=== PATIENT | female | born 1985 | race Caucasian/White ===

== ENCOUNTER → 2017-03-01 | Outpatient (CLI) | payer OTHER | END | disposition home or self-care (01) | LOC: LABWHC1 13:19 | PROVIDERS: ATTEND Nurse Practitioner Family | DX: N91.2 Amenorrhea, unspecified (principal) | CPT/HCPCS: 36415; 84702 ==

== ENCOUNTER → 2018-05-02 | Outpatient (CLI) | payer OTHER | END | disposition home or self-care (01) | LOC: LABWHC1 11:05 | PROVIDERS: ATTEND Physician Assistant | DX: Z33.1 Pregnant state, incidental (principal) | CPT/HCPCS: 36415; 84702 ==

== ENCOUNTER → 2018-07-28 | Outpatient (CLI) | payer OTHER ==
[2018-07-28 10:49] LABS: HCT 34.5 % (34.0-46.0); HGB 11.8 gm/dL (11.4-16.0); MCHC 34.1 g/dL (31.0-37.0); MCV 87.9 fL (80.0-100.0); Mean Platelet Volume 8.2; Platelet Count 172 k/uL (150-450); RBC 3.93 m/uL (3.80-5.40); RDW 13.5 % (11.5-15.5); WBC 6.8 k/uL (3.8-10.6)
[2018-07-28 18:28] LABS: HIV 1 AB Non-Reactive (Non-Reactive); HIV AB P24 Non-Reactive (Non-Reactive); HIV P24 AG Non-Reactive (Non-Reactive)
[2018-07-29 03:56] LABS: Toxoplasma Antibody (IgG) <3.0 IU/mL (<7.2); Toxoplasma Antibody (IgM) <3.0 AU/mL (<8.0)
== END | disposition home or self-care (01) ==
LOC: LABWHC1 09:15
PROVIDERS: ATTEND Obstetrics & Gynecology
DX: O26.812 Pregnancy related exhaustion and fatigue, second trimester (principal); Z3A.00 Weeks of gestation of pregnancy not specified
CPT/HCPCS: 36415; 82565; 82950; 85027; 86762; 86777; 86778; 86780; 86850; 86900; 86901; 87340; 87390

== ENCOUNTER 2018-09-05 16:03 | Outpatient (CLI) | payer OTHER ==
[2018-09-05 18:44] VITALS: BP 119/61; PULSE 83; RESP 18; TEMP 96.5
--- NOTE | 2018-09-29 17:39 | P.MSEPDOC ---
Presenting Problems - Arrival Data Date of Arrival on Unit: 09/05/18 Time of Arrival on Unit: 16:20 Mode of Transport: Ambulatory - Complaint OB-Reason for Admission/Chief Complaint: Pain Medical History - Information : 10 Para: 7 Abortions: Spontaneous or Elective: 2 Number of Living Children: 7 - Gestational Age Gestational Age by RADHA (wks/days): 34 Weeks and 1 Days Review of Systems - Review of Systems Constitutional: No problems Breast: No problems ENT: No problems Cardiovascular: No problems Respiratory: No problems Gastrointestinal: No problems Genitourinary: No problems Musculoskeletal: No problems Neurological: No problems Skin: No problems Vital Signs - Temperature Temperature: 96.5 F Temperature Source: Temporal Artery Scan - Pulse Pulse Oximetery Pulse Rate: 83 Pulse Assessment Method: Automatic Cuff - Respirations Respiratory Rate: 18 - Blood Pressure Right Arm Sitting Blood Pressure: 119/61 Blood Pressure Mean: 80 Blood Pressure Source: Automatic Cuff Medical Screen Scoring (Pre) - Cervical Exam Dilation: 1-3 cm = 1 Effacement: More than 50% = 2 Membranes: Intact - Uterine Contractions Frequency: N/A Duration: N/A Intensity: N/A - Maternal Vital Signs Maternal Temperature: N/A Maternal Blood Pressure: N/A Maternal Respirations: N/A - Pain Assessment Pain Location and Character: Upper, Back, Abdomen Pain Scale Used: Numeric (1 - 10) Pain Intensity: 4 Pain Description: Sore Pain Frequency: Frequent Pain Duration Units: Days Pain Behavior: None Exhibited Pain Aggravating Factors: None Non-Pharmacological Interventions: Distraction, Emotional/Spiritual Support, Reduce Environmental Stimuli - Maternal Trauma Maternal Trauma: N/A - Assessment Baseline FHR: 125 Heart Rate - NICHD Category: Category I (Normal) = 0 NST: Reactive Position: N/A Station: N/A - Total Score Total Score (Pre): 3 - Level of Risk Level of Risk: Low (0-5) Medical Screen Scoring (Post) - Post Treatment Level of Risk Post Treatment Level of Risk: Low (0-5) Physician Notification (Post) - Physician Notified Physician Notified Date: 09/05/18 Physician Notified Time: 17:55 Physician/Practitioner Notified:: Dr Decker Spoke With: Dr Decker New Order Received: Yes Disposition - Disposition OB Disposition: Discharge to home, Written follow up instructions reviewed Discharge Date: 09/05/18 Discharge Time: 18:00 I agree with the RN Medical Screening Exam: Yes Risk & Benefit of care provided described in d/c instruction: Yes Diagnosis: FALSE LABOR BEFORE 37 COMPLETED WEEKS OF GEST, THIRD TRI
== END 2018-09-05 18:00 | disposition home or self-care (01) ==
LOC: FBPOP 16:03
PROVIDERS: ATTEND Obstetrics & Gynecology
DX: O47.03 False labor before 37 completed weeks of gestation, third trimester (principal); Z3A.34 34 weeks gestation of pregnancy
CPT/HCPCS: 59025; G0463; 99213

== ENCOUNTER 2018-09-27 06:24 | Inpatient (IN) | payer OTHER ==
[2018-09-27] MEDS ORDERED: AMPICILLIN 2,000 MG in SODIUM CHLORIDE 0.9% 100 ML IVPB STA (06:39)
[2018-09-27] MEDS ORDERED: TERBUTALINE 1 MG/ML VIAL SQ PRN (06:39)
[2018-09-27] MEDS ORDERED: METHYLERGONOVINE 0.2 MG/ML 1 ML AMP IM PRN (06:39)
[2018-09-27] MEDS ORDERED: CARBOPROST TROMETHAMINE 250 MCG/ML 1 ML AMP IM PRN (06:39)
[2018-09-27] MEDS ORDERED: LIDOCAINE 0.5% (PF) 5 MG/ML (50 ML SDV) SQ PRN (06:39)
[2018-09-27] MEDS ORDERED: OXYTOCIN 10 UNIT/ML 1 ML VIAL IM PRN (06:39)
[2018-09-27] MEDS ORDERED: LACTATED RINGERS 1,000 ML IV SCH (06:45)
[2018-09-27] MEDS ORDERED: BUTORPHANOL 1 MG/ML 1 ML VIAL IV PRN (06:50)
[2018-09-27 07:48] VITALS: BMI 33.7
[2018-09-27 07:58] LABS: Basophils % (A) 1 %; Eosinophils # (A) 0.1 k/uL (0-0.7); Eosinophils % (A) 1 %; HGB 10.9 gm/dL (11.4-16.0); Lymphocytes # (A) 1.2 k/uL (1.0-4.8); Lymphocytes % (A) 18 %; MCHC 34.1 g/dL (31.0-37.0); Monocytes # (A) 0.3 k/uL (0-1.0); Monocytes % (A) 5 %; Neutrophils % (A) 74 %; Platelet Count 148 k/uL (150-450); RBC 3.77 m/uL (3.80-5.40); RDW 14.3 % (11.5-15.5); WBC 6.8 k/uL (3.8-10.6)
--- NOTE | 2018-09-27 10:35 | P.HPOB ---
History of Present Illness H&P Date: 09/27/18 Chief Complaint: Spontaneous rupture of membranes This is a 33-year-old female 10 para 7 with an estimated date of confinement of 10/05/2018, estimated gestational age of 38-6/7 weeks, who presented to labor and delivery with spontaneous rupture of membranes with thin meconium noted at approximate 5:30 AM. She did state she was feeling irregular contractions. care has been with Dr. Decker. [place] has been uncomplicated per patient. She has been getting urine drug screens at each visit per her request That have been negative. Apparently there was a drug screen early on that did show positive cocaine. labs: 1 hour Glucola-90 Hepatitis B surface antigen-negative on reactive Rubella-immune Syphilis antibody-nonreactive HIV-nonreactive Toxoplasma-negative Group B streptococcus-positive Obstetrical history: . History of 7 vaginal deliveries at term. She did have one delivery at 37 weeks' however they thought the baby was actually earlier than 37 weeks and the baby was in the nursery for 2 weeks. She has had a history of 2 miscarriages that did not require D&C. 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 Review of Systems Constitutional: Denies chills, Denies fever Eyes: denies blurred vision, denies pain Ears, nose, mouth and throat: Denies headache, Denies sore throat Cardiovascular: Denies chest pain, Denies shortness of breath Respiratory: Denies cough Gastrointestinal: Reports abdominal pain Genitourinary: Reports pelvic pain, Reports Musculoskeletal: Reports low back pain Integumentary: Denies pruritus, Denies rash Past Medical History Past Medical History: Fibromyalgia Additional Past Medical History / Comment(s): MIGRAINES. Hx elevated liver enzymes in 2011. Arthritis in her back. Born with "Tethered spinal cord". 7 live births - vaginal deliveries History of Any Multi-Drug Resistant Organisms: None Reported, MRSA Date of last positivie culture/infection: 2013 MDRO Source:: armpits Past Surgical History: Back Surgery Additional Past Surgical History / Comment(s): D&C. Back surgery - 2005 and 2007 Past Anesthesia/Blood Transfusion Reactions: Family History of Problems w/ Anesthesia, Motion Sickness Additional Past Anesthesia/Blood Transfusion Reaction / Comment(s): DAD GETS VERY MEAN (GOES BACK TO SPEAKING [place] LANGUAGE). Past Psychological History: Anxiety Smoking Status: Former smoker Past Alcohol Use History: Rare Additional Past Alcohol Use History / Comment(s): NORMALLY SMOKES ONLY TO RELIEVE MIGRAINES Past Drug Use History: None Reported Additional Drug Use History / Comment(s): History of positive urine drug screen for cocaine - Past Family History Mother Family Medical History: Cancer, Diabetes Mellitus, Hyperlipidemia, Hypertension Medications and Allergies Home Medications Medication Instructions Recorded Confirmed Type Gabapentin [Neurontin] 600 mg PO BID PRN 07/03/16 09/27/18 History Allergies Allergy/AdvReac Type Severity Reaction Status Date / Time simvastatin [From Zocor] Allergy Unknown Verified 09/27/18 06:28 ibuprofen [From Motrin] AdvReac Chest Pain Verified 09/27/18 06:28 morphine AdvReac Itching Verified 09/27/18 06:28 pregabalin [From Lyrica] AdvReac DEPRESSION. Verified 09/27/18 06:28 propranolol HCl AdvReac Chest Pain Verified 09/27/18 06:28 [From Inderal LA] Exam Osteopathic Statement: *. No significant issues noted on an osteopathic structural exam other than those noted in the History and Physical/Consult. Vital Signs Temp Pulse Resp BP 09/27/18 07:03 97.1 F L 79 16 138/94 09/27/18 06:29 97.1 F L 79 16 119/72 Intake and Output 09/26/18 09/27/18 09/27/18 22:59 06:59 14:59 Other: Weight 92.079 kg 92.079 kg HEENT: Within normal limits Heart: Regular rate and rhythm Lungs: Clear to auscultation bilaterally Abdomen: Cervix: On admission is 3-1/2 cm/70%/-2 station. Positive an Essure with thin meconium noted. heart tones: Reactive Contractions: Irregular Extremities: Negative Homans Results Result Diagrams: 09/27/18 07:48 Abnormal Lab Results - Last 24 Hours (Table) 09/27/18 Range/Units 07:48 RBC 3.77 L (3.80-5.40) m/uL Hgb 10.9 L (11.4-16.0) gm/dL Hct 32.0 L (34.0-46.0) % Plt Count 148 L (150-450) k/uL Assessment and Plan (1) 38 weeks gestation of Current Visit: Yes Status: Acute Code(s): Z3A.38 - 38 WEEKS GESTATION OF SNOMED Code(s): 32956952 (2) Meconium in amniotic fluid Current Visit: Yes Status: Acute Code(s): P96.83 - MECONIUM STAINING SNOMED Code(s): 678583964 Plan: Admission for active labor. Expectant management. Stadol as needed for pain control. Will obtain director social service consult after delivery due to history of CPS involvement and history of positive cocaine on drug screen early on. Will also obtain drug screen on admission.
--- NOTE | 2018-09-27 10:38 | P.PROBDLV ---
Vaginal Delivery Note - . Vaginal Delivery Note: The patient rather precipitously delivered prior to my arrival with nursing staff present. 's head delivered and then nuchal cord 2 was reduced around the infant's head. Nose and mouth were bulb suctioned. When she was instructed to push one further time, she refused to push and stated she was having a panic attack. She was encouraged to continue pushing and one she did decide to push, the remainder the easily delivered and was placed on mother's abdomen. Cord was clamped and cut and infant was taken to warmer for evaluation. Infant was then taken to the nursery for further evaluation. A viable female was noted with scores of 7 at 1 minute and 9 at 5 minutes and weight of 8 lbs. 9 oz. Her placenta delivered approximately 30 minutes later after gentle uterine massage and maternal pushing efforts. Uterus contracted well after oxytocin was given and uterine massage was carried out. A gloved hand was placed in a few blood clots were removed but no further placental tissue was palpated. Inspection of the perineum revealed no perineal lacerations. Estimated blood loss is approximately 200 mL's. Mother is in stable condition and is in the nursery for evaluation by pediatrics.
--- NOTE | 2018-09-27 10:41 | P.MSEPDOC ---
Presenting Problems - Arrival Data Date of Arrival on Unit: 09/27/18 Time of Arrival on Unit: 06:43 Mode of Transport: Wheelchair - Complaint OB-Reason for Admission/Chief Complaint: Rule Out SROM Medical History - Information : 10 Para: 7 Term: 7 : 0 Abortions: Spontaneous or Elective: 2 Number of Living Children: 7 - Gestational Age Gestational Age by RADHA (wks/days): 38 Weeks and 6 Days Review of Systems - Review of Systems Constitutional: No problems Breast: No problems ENT: No problems Cardiovascular: No problems Respiratory: No problems Gastrointestinal: No problems Genitourinary: No problems Musculoskeletal: No problems Neurological: No problems Skin: No problems Vital Signs - Temperature Temperature: 97.1 F Temperature Source: Temporal Artery Scan - Pulse Right Pulse Rate: 79 Pulse Assessment Method: Automatic Cuff - Respirations Respiratory Rate: 16 Oxygen Delivery Method: Room Air - Blood Pressure Right Arm Blood Pressure: 138/94 Blood Pressure Mean: 108 Blood Pressure Source: Automatic Cuff Medical Screen Scoring (Pre) - Cervical Exam Dilation: 4-7 cm = 2 Effacement: More than 50% = 2 Membranes: Ruptured = 3 - Uterine Contractions Frequency: N/A Duration: N/A Intensity: N/A - Maternal Vital Signs Maternal Temperature: N/A Maternal Blood Pressure: N/A Signs of Preeclampsia: N/A Maternal Respirations: N/A - Pain Assessment Pain Location and Character: Abdomen Pain Scale Used: Numeric (1 - 10) Pain Intensity: 9 Pain Management Goal: 2 Pain Description: *Acute, Cramping, Tightness Pain Frequency: Intermittent Pain Duration Units: Minutes Pain Behavior: Vocalization Pharmacological Interventions: PRN Medication - Maternal Trauma Maternal Trauma: N/A - Assessment Baseline FHR: 125 Heart Rate - NICHD Category: Category I (Normal) = 0 NST: Reactive Position: N/A Station: N/A - Total Score Total Score (Pre): 7 - Level of Risk Level of Risk: Medium (6-9) Physician Notification (Pre) - Physician Notified Physician Notified Date: 09/27/18 Physician Notified Time: 06:57 Physician/Practitioner Notifed:: Dr. Mead Spoke With: Dr. Mead New Order Received: Yes (admit) Disposition - Disposition OB Disposition: Admit Discharge Date: 09/27/18 Discharge Time: 06:57 I agree with the RN Medical Screening Exam: Yes Risk & Benefit of care provided described in d/c instruction: Yes Diagnosis: ENCOUNTER FOR FULL-TERM UNCOMPLICATED DELIVERY
[2018-09-27] MEDS ORDERED: AMPICILLIN 1,000 MG in SODIUM CHLORIDE 0.9% 50 ML IVPB SCH (11:00)
[2018-09-27] MEDS ORDERED: SIMETHICONE 80 MG CHEWABLE PO PRN (11:05)
[2018-09-27] MEDS ORDERED: OXYTOCIN 20 UNITS/1000 ML NS 1,000 ML IV SCH (11:05)
[2018-09-27] MEDS ORDERED: diphenhydrAMINE 50 MG CAP PO PRN (11:05)
[2018-09-27] MEDS ORDERED: BENZOCAINE/MENTHOL SPRAY 1 GM/SPRAY AEROSOL TOPICAL PRN (11:05)
[2018-09-27] MEDS ORDERED: HYDROCORTISONE 2.5% RECTAL CREAM 30 GM TUBE RECTAL PRN (11:05)
[2018-09-27] MEDS ORDERED: diphenhydrAMINE 50 MG/ML 1 ML VIAL IVP PRN ×2 (11:05)
[2018-09-27] MEDS ORDERED: diphenhydrAMINE 25 MG CAP PO PRN (11:05)
[2018-09-27] MEDS ORDERED: LANOLIN CREAM 5 GM TUBE TOPICAL PRN (11:05)
[2018-09-27] MEDS ORDERED: WITCH HAZEL 1 EACH MED..PAD TOPICAL PRN (11:05)
[2018-09-27] MEDS ORDERED: ACETAMINOPHEN TAB 325 MG TAB PO PRN (11:05)
[2018-09-27] MEDS ORDERED: ZOLPIDEM 5 MG TAB PO PRN (11:05)
[2018-09-27] MEDS: GABAPENTIN 300 MG CAP PO PRN ×2 (11:58→21:08)
[2018-09-27 18:00] LABS: Urine Alcohol Negative (Negative); Urine Barbiturate Negative (Negative); Urine Cocaine Negative (Negative); Urine Methadone Negative (Negative); Urine Opiates Negative (Negative); Urine Phencyclidine Negative (Negative)
[2018-09-27] MEDS: SENNOSIDES-DOCUSATE SODIUM 1 EACH TAB PO SCH (20:58)
[2018-09-28 07:05] LABS: Basophils % (A) 0 %; Eosinophils # (A) 0.1 k/uL (0-0.7); Eosinophils % (A) 1 %; HCT 26.9 % (34.0-46.0); Lymphocytes # (A) 1.6 k/uL (1.0-4.8); Lymphocytes % (A) 21 %; MCH 29.7 pg (25.0-35.0); MCHC 34.9 g/dL (31.0-37.0); MCV 85.1 fL (80.0-100.0); Mean Platelet Volume 9.2; Monocytes # (A) 0.4 k/uL (0-1.0); Monocytes % (A) 5 %; Neutrophils # (A) 5.3 k/uL (1.3-7.7); Neutrophils % (A) 71 %; Platelet Count 162 k/uL (150-450); RBC 3.16 m/uL (3.80-5.40); RDW 14.5 % (11.5-15.5); WBC 7.5 k/uL (3.8-10.6)
[2018-09-28 07:33] LABS: HGB 9.4 gm/dL (11.4-16.0)
[2018-09-28] MEDS: GABAPENTIN 300 MG CAP PO PRN ×2 (08:31→21:11)
[2018-09-28] MEDS: SENNOSIDES-DOCUSATE SODIUM 1 EACH TAB PO SCH ×2 (08:31→21:10)
--- NOTE | 2018-09-28 12:07 | P.PNOBGVD ---
Subjective - Subjective Principal diagnosis: Status post vaginal delivery day #1 Interval history: Patient states she had some heavier bleeding yesterday but this has slowed today. She complains of varicose veins in her legs and upper thighs that are tender to touch, especially on the right leg. She is breast-feeding. She does complain of some upper abdominal pain but she did pass some flatus and this has improved a little bit. Patient reports: Reports appetite normal, Reports voiding normally, Reports pain well controlled, Reports ambulating normally : nursing well, other (In level I nursery) Objective - Latest Vital Signs Latest vital signs: Vital Signs Temp Pulse Pulse Resp BP Pulse Ox 09/28/18 08:00 97.6 F 74 16 130/69 09/27/18 23:48 98.2 F 64 16 105/54 96 09/27/18 19:37 98.3 F 78 16 124/76 96 09/27/18 15:46 99.1 F 78 16 139/72 Intake and Output 09/27/18 09/28/18 09/28/18 22:59 06:59 14:59 Other: Voiding Method Toilet # Voids 1 - Exam Extremities: Present: tenderness (Mild on right side), other (Varicose vein in right inner thigh swollen and slightly tender but no redness noted.). Absent: edema Abdomen: Present: normal appearance, soft. Absent: distention, tenderness Uterus: Present: normal, firm. Absent: tenderness - Labs Labs: Abnormal Lab Results - Last 24 Hours (Table) 09/28/18 Range/Units 06:43 RBC 3.16 L (3.80-5.40) m/uL Hgb 9.4 L D (11.4-16.0) gm/dL Hct 26.9 L (34.0-46.0) % Assessment and Plan Assessment: Status post vaginal delivery day #1 (1) 38 weeks gestation of Current Visit: Yes Status: Acute Code(s): Z3A.38 - 38 WEEKS GESTATION OF SNOMED Code(s): 14948988 (2) Meconium in amniotic fluid Current Visit: Yes Status: Acute Code(s): P96.83 - MECONIUM STAINING SNOMED Code(s): 434220621 Plan: Will order thigh-high ADAM hose to help with her varicose veins. Will start on naproxen twice a day since patient states she has tolerated this in the past and is unable to take ibuprofen.
[2018-09-28] MEDS: NAPROXEN 250 MG TAB PO SCH ×2 (12:32→21:10)
[2018-09-29 08:05] VITALS: BP 133/76; PULSE 91; RESP 17; TEMP 98.3
--- NOTE | 2018-09-29 08:51 | P.DS ---
Providers Date of admission: 09/27/18 06:51 Expected date of discharge: 09/29/18 Attending physician: Rosalina Decker Primary care physician: Stated None - Discharge Diagnosis(es) (1) Normal vaginal delivery Current Visit: No Status: Acute Hospital Course: Patient presented in active labor. She underwent a normal vaginal delivery. Her course was uncomplicated. She'll be discharged home day #2 in stable condition to follow-up with me in 6 weeks. Plan - Discharge Summary New Discharge Prescriptions: New Naproxen Sodium 550 mg PO BID PRN #30 tablet PRN Reason: Pain No Action Gabapentin [Neurontin] 600 mg PO BID PRN PRN Reason: back pain Discharge Medication List Gabapentin [Neurontin] 600 mg PO BID PRN 07/03/16 [History] Naproxen Sodium 550 mg PO BID PRN #30 tablet 09/29/18 [Rx] Follow up Appointment(s)/Referral(s): Rosalina Decker DO [Doctor of Osteopathic Medicine] - 6 Weeks Discharge Disposition: HOME SELF-CARE
[2018-09-29] MEDS: SENNOSIDES-DOCUSATE SODIUM 1 EACH TAB PO SCH (09:14)
[2018-09-29] MEDS: NAPROXEN 250 MG TAB PO SCH (09:15)
[2018-09-29] MEDS: GABAPENTIN 300 MG CAP PO PRN (09:15)
== END 2018-09-29 14:00 | disposition home or self-care (01) | DRG 806 ==
LOC: FBPOP 06:24 → 4FBP 06:51
PROVIDERS: ADMIT Obstetrics & Gynecology; ATTEND Obstetrics & Gynecology
PROC: 10E0XZZ Delivery of Products of Conception, External Approach (ICD-10-PCS; principal; 2018-09-27)
DX: O69.81X0 Labor and delivery complicated by cord around neck, without compression, not applicable or unspecified (principal); O99.354 Diseases of the nervous system complicating childbirth; Z37.0 Single live birth; O62.3 Precipitate labor; O77.0 Labor and delivery complicated by meconium in amniotic fluid; O87.4 Varicose veins of lower extremity in the puerperium; O99.344 Other mental disorders complicating childbirth; F41.9 Anxiety disorder, unspecified; O99.89 Other specified diseases and conditions complicating pregnancy, childbirth and the puerperium; G43.909 Migraine, unspecified, not intractable, without status migrainosus; M46.90 Unspecified inflammatory spondylopathy, site unspecified; M79.7 Fibromyalgia; Z3A.38 38 weeks gestation of pregnancy; Z87.891 Personal history of nicotine dependence; Z87.728 Personal history of other specified (corrected) congenital malformations of nervous system and sense organs; Z79.899 Other long term (current) drug therapy; Z88.6 Allergy status to analgesic agent; Z88.8 Allergy status to other drugs, medicaments and biological substances; Z82.49 Family history of ischemic heart disease and other diseases of the circulatory system; Z83.3 Family history of diabetes mellitus; Z80.9 Family history of malignant neoplasm, unspecified
CPT/HCPCS: 59025; 80306; 84112; 85025; 86850; 86870; 86880; 86900; 86901; 88307; 99213

== ENCOUNTER → 2019-03-09 | Outpatient (CLI) | payer OTHER | END | disposition home or self-care (01) | LOC: LABWHC1 14:18 | PROVIDERS: ATTEND Obstetrics & Gynecology | DX: N92.6 Irregular menstruation, unspecified (principal) | CPT/HCPCS: 36415; 84702 ==

== ENCOUNTER → 2019-03-12 | Outpatient (CLI) | payer OTHER ==
--- NOTE | 2019-03-13 13:13 | ECHOF ---
Referral Reason:R94.31 Abnormal EKG MEASUREMENTS -------- HEIGHT: 165.1 cm WEIGHT: 92.1 kg BP: RVIDd: 2.9 cm (< 3.3) IVSd: 0.9 cm (0.6 - 1.1) LVIDd: 4.7 cm (3.9 - 5.3) LVPWd: 0.9 cm (0.6 - 1.1) IVSs: 1.5 cm LVIDs: 2.4 cm LVPWs: 1.7 cm LAESV Index (A-L): 26.62 ml/m Ao Diam: 2.4 cm (2.0 - 3.7) AV Cusp: 2.0 cm (1.5 - 2.6) LA Diam: 3.3 cm (2.7 - 3.8) EPSS: 0.3 cm MV E Zac: 0.80 m/s MV DecT: 184 ms MV A Zac: 0.61 m/s MV E/A Ratio: 1.30 RAP: 5.00 mmHg RVSP: 28.31 mmHg MV EF SLOPE: 133.38 mm/s (70 - 150) MV EXCURSION: 1.59 cm (> 18.000) FINDINGS -------- Sinus rhythm. This was a technically good study. The left ventricular size is normal. Left ventricular wall thickness is normal. Overall left vent ricular systolic function is normal with, an EF between 55 - 60 %. The diastolic filling pattern is normal for the age of the patient. The right ventricle is normal in size. The left atrial size is normal. Left atrium is normal size by volume. The right atrial size is normal. Interatrial and interventricular septum intact. The aortic valve is trileaflet and appears structurally normal. The mitral valve is normal. There is trace mitral regurgitation. Trace tricuspid regurgitation present. Right ventricular systolic pressure is normal at < 35 mmHg. The pulmonic valve is normal. There is no pulmonic regurgitation present. The aortic root size is normal. Normal inferior vena cava with normal inspiratory collapse consistent with estimated right atrial pre ssure of 10 mmHg. The flow patterns, measured by Doppler, appear normal. There is no pericardial effusion. CONCLUSIONS -------- 1. Sinus rhythm. 2. This was a technically good study. 3. The left ventricular size is normal. 4. Left ventricular wall thickness is normal. 5. Overall left ventricular systolic function is normal with, an EF between 55 - 60 %. 6. The diastolic filling pattern is normal for the age of the patient. 7. The right ventricle is normal in size. 8. The left atrial size is normal. 9. Left atrium is normal size by volume. 10. The right atrial size is normal. 11. Interatrial and interventricular septum intact. 12. The aortic valve is trileaflet and appears structurally normal. 13. The mitral valve is normal. 14. There is trace mitral regurgitation. 15. Trace tricuspid regurgitation present. 16. Right ventricular systolic pressure is normal at < 35 mmHg. 17. The pulmonic valve is normal. 18. There is no pulmonic regurgitation present. 19. The aortic root size is normal. 20. Normal inferior vena cava with normal inspiratory collapse consistent with estimated right atrial pressure of 10 mmHg. 21. The flow patterns, measured by Doppler, appear normal. 22. There is no pericardial effusion. CIVIL CLERK: Vicky Musa RDCS
== END | disposition home or self-care (01) ==
LOC: RADECHMAIN 12:45
PROVIDERS: ATTEND Family Medicine
DX: R94.31 Abnormal electrocardiogram [ECG] [EKG] (principal)
CPT/HCPCS: 93306

== ENCOUNTER → 2019-07-27 | Outpatient (CLI) | payer OTHER ==
--- NOTE | 2019-07-27 10:45 | XR ---
EXAMINATION TYPE: XR cervical spine comp DATE OF EXAM: 07/27/2019 TECHNIQUE: Frontal, lateral, oblique, swimmers, and open mouth view of the cervical spine are obtaine d. HISTORY: M54.2 Cervicalgia COMPARISON: None FINDINGS: The cervical spine is visualized in its entirety from C1 thru the top of T1 level . There is very mild grade 1 anterolisthesis of C3 on C4 and C4 on C5 (1 mm at each level). Vertebral body he ights are maintained of the cervical spine. Small anterior osteophytes are seen. Intervertebral disc space narrowing is mild at C5-C6. The pre-vertebral soft tissue appears within normal limits. The C1 -C2 articulation is within normal limits on the open mouth view. The oblique images are within jose miguel l limits. IMPRESSION: No acute fracture of the cervical spine. Mild multilevel degenerative disc disease and v jaxson mild multilevel malalignment as detailed above.
== END | disposition home or self-care (01) ==
LOC: RADXRMAIN 10:12
PROVIDERS: ATTEND Family Medicine
DX: M50.30 Other cervical disc degeneration, unspecified cervical region (principal)
CPT/HCPCS: 72050

== ENCOUNTER → 2019-09-10 | Outpatient (CLI) | payer OTHER ==
[2019-09-10 15:03] LABS: Basophils # (A) 0.1 k/uL (0-0.2); Basophils % (A) 1 %; Eosinophils # (A) 0.1 k/uL (0-0.7); Eosinophils % (A) 2 %; HCT 42.4 % (34.0-46.0); Lymphocytes # (A) 2.3 k/uL (1.0-4.8); Lymphocytes % (A) 30 %; MCH 28.8 pg (25.0-35.0); MCHC 33.1 g/dL (31.0-37.0); Mean Platelet Volume 7.8; Monocytes # (A) 0.4 k/uL (0-1.0); Monocytes % (A) 5 %; Neutrophils # (A) 4.7 k/uL (1.3-7.7); Neutrophils % (A) 61 %; Platelet Count 272 k/uL (150-450); RBC 4.88 m/uL (3.80-5.40); RDW 12.9 % (11.5-15.5); WBC 7.7 k/uL (3.8-10.6)
== END | disposition home or self-care (01) ==
LOC: LABPAT 14:31
PROVIDERS: ATTEND Obstetrics & Gynecology
DX: Z01.812 Encounter for preprocedural laboratory examination (principal)
CPT/HCPCS: 85025

== ENCOUNTER 2019-09-14 10:55 | Day surgery (SDC) | payer OTHER ==
[2019-09-07 17:05] VITALS: BMI 39.1
--- NOTE | 2019-09-14 07:14 | P.HPOB ---
History of Present Illness H&P Date: 09/14/19 Chief Complaint: family planning 34 year old presents for laparoscopic tubal ligation. Review of Systems All systems: negative Constitutional: Denies chills, Denies fever Eyes: denies blurred vision, denies pain Ears, nose, mouth and throat: Denies headache, Denies sore throat Cardiovascular: Denies chest pain, Denies shortness of breath Respiratory: Denies cough Gastrointestinal: Denies abdominal pain, Denies diarrhea, Denies nausea, Denies vomiting Genitourinary: Denies dysuria, Denies hematuria Musculoskeletal: Denies myalgias Integumentary: Denies pruritus, Denies rash Neurological: Denies numbness, Denies weakness Psychiatric: Denies anxiety, Denies depression Endocrine: Denies fatigue, Denies weight change Past Medical History Past Medical History: Fibromyalgia, Musculoskeletal Disorder Additional Past Medical History / Comment(s): Hx migraines. Hx elevated liver enzymes in 2011. Arthritis in back. Born with "Tethered spinal cord." Back surgery x2. Pain, numbness Rt neck. 7 live births - vaginal deliveries History of Any Multi-Drug Resistant Organisms: MRSA Date of last positivie culture/infection: 2013 MDRO Source:: armpits Past Surgical History: Back Surgery Additional Past Surgical History / Comment(s): D&C. Back surgery - 2005 and 2007 Past Anesthesia/Blood Transfusion Reactions: Family History of Problems w/ Anesthesia, Motion Sickness Additional Past Anesthesia/Blood Transfusion Reaction / Comment(s): Mother has PONV. Past Psychological History: Depression Smoking Status: Current some day smoker Past Alcohol Use History: None Reported Past Drug Use History: None Reported - Past Family History Mother Family Medical History: Cancer, Diabetes Mellitus, Hyperlipidemia, Hypertension Additional Family Medical History / Comment(s): skin CA Medications and Allergies Home Medications Medication Instructions Recorded Confirmed Type Gabapentin [Neurontin] 1,200 mg PO TID PRN 07/03/16 09/07/19 History Cyclobenzaprine [Flexeril] 10 mg PO TID PRN 09/07/19 09/07/19 History Allergies Allergy/AdvReac Type Severity Reaction Status Date / Time simvastatin [From Zocor] Allergy Unknown Verified 09/07/19 16:43 ibuprofen [From Motrin] AdvReac Chest Pain Verified 09/07/19 16:43 morphine AdvReac Itching Verified 09/07/19 16:43 pregabalin [From Lyrica] AdvReac DEPRESSION. Verified 09/07/19 16:43 propranolol HCl AdvReac Chest Pain Verified 09/07/19 16:43 [From Inderal LA] Exam Osteopathic Statement: *. No significant issues noted on an osteopathic structural exam other than those noted in the History and Physical/Consult. Heart: RRR Lungs: CTAB Abdomen: soft, nontender Extremeties: neg kianna's Assessment and Plan (1) Family planning Status: Acute Code(s): Z30.09 - ENCOUNTER FOR OTH GENERAL CNSL AND ADVICE ON CONTRACEPTION SNOMED Code(s): 814645548 Plan: 1. laparoscopic tubal ligation
[~2019-09-14 10:55] MED LIST: DEXAMETHASONE SOD PHOSPHATE 10 MG/ML 1 ML VIAL IV ONE; HYDROmorphone 0.5 MG/0.5 ML SYRINGE IVP PRN; LACTATED RINGERS 1,000 ML IV SCH; MIDAZOLAM 2 MG/2 ML VIAL IV PRN; ONDANSETRON 4 MG/2 ML VIAL IVP ONE; Pre Op ABX Message 1 EACH MISC MISCELLANE ONE
[2019-09-14] MEDS ORDERED: LIDOCAINE 1% 20 ML VIAL (10MG/ML) FOR IV START INTRADERMA ONE (11:48)
[2019-09-14] MEDS ORDERED: SCOPOLAMINE 1.5MG/72HR PATCH TRANSDERM ONE (11:48)
[2019-09-14] MEDS ORDERED: NEOSTIGMINE 1 MG/ML 10 ML VIAL ONE (12:17)
[2019-09-14] MEDS ORDERED: PROPOFOL 10 MG/ML 20 ML VIAL IV ONE (12:17)
[2019-09-14] MEDS ORDERED: SUCCINYLCHOLINE CHLORIDE 100 MG/5 ML SYR IV ONE (12:17)
[2019-09-14] MEDS ORDERED: fentaNYL (PF) 50 MCG/ML 2 ML AMP ONE (12:17)
[2019-09-14] MEDS ORDERED: ROCURONIUM BROMIDE 10 MG/ML 10 ML VIAL IV ONE (12:17)
[2019-09-14] MEDS ORDERED: GLYCOPYRROLATE 0.2 MG/ML 2 ML VIAL ONE (12:17)
[2019-09-14] MEDS ORDERED: LIDOCAINE 1% INJ 10MG/ML (20 ML MDV) ONE (12:17)
[2019-09-14] MEDS ORDERED: MIDAZOLAM 2 MG/2 ML VIAL ONE (12:17)
[2019-09-14] MEDS ORDERED: BUPIVACAINE (PF) 0.25% 30 ML VIAL SQ ONE ×2 (12:19)
--- NOTE | 2019-09-14 12:54 | P.OP ---
Date of Procedure: 09/14/19 Preoperative Diagnosis: 1. Family planning Postoperative Diagnosis: 1. Family planning Procedure(s) Performed: Laparoscopic tubal ligation Anesthesia: CHING Surgeon: Rosalina Decker Estimated Blood Loss (ml): 2 IV fluids (ml): 600 Urine output (ml): 20 Pathology: none sent Condition: stable Disposition: PACU Operative Findings: Normal uterus, tubes, ovaries. Uterus sounded to 8 cm. Description of Procedure: Patient was taken to the operating room where general anesthesia was obtained without difficulty. She was prepped and draped in normal sterile fashion in the dorsal lithotomy position, legs placed in the Garth stirrups. Bladder drained of all urine. [place]um speculum placed in the vagina and the anterior lip the cervix was grasped with single-tooth tenaculum. The uterus is sounded to 8 cm and the kroner manipulator was placed. Attention was then turned to the abdomen and gloves were changed. A 10 mm infraumbilical incision was made the scalpel and 10 mm optical trocar was placed under direct visualization. A 5 mm suprapubic Incision was made and a 5 mm optical trocar was placed under direct visualization. Survey of the pelvis revealed normal uterus tubes and ovaries. The left fallopian tube was grasped with a Kleppinger and fulgurated 2-3 cm on this side in the ampullar portion. The right fallopian tube was grasped with a Kleppinger and fulgurated 2-3 cm in the ampullar portion. All instruments were then removed from the abdomen and vagina. The 10 mm infraumbilical incision was closed with 0 Vicryl and the fascial layer and then 4-0 Vicryl in a subcuticular fashion. The 5 mm incision was closed with 4-0 Vicryl in a subcuticular fashion. Patient tolerated procedure well, sponge and instrument counts correct 2 and she was taken to recovery room in stable condition.
[2019-09-14 13:02] VITALS: TEMP 97.5
[2019-09-14 14:46] VITALS: BP 112/75; PULSE 57; RESP 18
== END 2019-09-14 14:58 | disposition home or self-care (01) ==
LOC: OR 10:55
PROVIDERS: ATTEND Obstetrics & Gynecology
DX: Z30.2 Encounter for sterilization (principal); M79.7 Fibromyalgia; G43.909 Migraine, unspecified, not intractable, without status migrainosus; F32.9 Major depressive disorder, single episode, unspecified; F17.210 Nicotine dependence, cigarettes, uncomplicated; Z79.899 Other long term (current) drug therapy; Z86.14 Personal history of Methicillin resistant Staphylococcus aureus infection; Z88.6 Allergy status to analgesic agent; Z88.8 Allergy status to other drugs, medicaments and biological substances; Z88.5 Allergy status to narcotic agent; Z98.890 Other specified postprocedural states; Z83.3 Family history of diabetes mellitus; Z82.49 Family history of ischemic heart disease and other diseases of the circulatory system; Z80.8 Family history of malignant neoplasm of other organs or systems
CPT/HCPCS: 81025; 58670; J2250; J1100; J2710; J2405; J2001; J3010; J0330; J2704; J1170

== ENCOUNTER 2020-03-11 20:25 | Emergency (ER) | payer OTHER ==
--- NOTE | 2020-03-11 21:31 | XR ---
EXAMINATION TYPE: XR foot complete RT DATE OF EXAM: 03/11/2020 COMPARISON: NONE HISTORY: Foot pain TECHNIQUE: 3 views FINDINGS: Metatarsals are intact. I see no fracture nor dislocation. Joint spaces are normal. IMPRESSION: Negative right foot exam. No fracture.
--- NOTE | 2020-03-11 21:53 | ED ---
Extremity Problem HPI - General Chief complaint: Extremity Problem,Nontraumatic Stated complaint: Rt Leg Pain Time Seen by Provider: 03/11/20 20:50 Source: patient Mode of arrival: ambulatory Limitations: no limitations - History of Present Illness Initial comments: Patient is a 34-year-old female presenting to the emergency department with a chief complaint of right leg pain. Patient reports this started about one week ago while she was carrying her kids. Patient reports the pain has been gradually increasing severity and is mostly located in the foot but now she has developed some right lower extremity swelling. Denies any direct trauma. Does report some calf tenderness but denies any shortness of breath or chest pain. She is not on oral contraceptives or any other issues. Patient is not undergoing chemotherapy for cancer treatment. Patient is not . No previous history of DVT or PE. No hypercoagulable disorders. - Related Data Home Medications Medication Instructions Recorded Confirmed Gabapentin [Neurontin] 1,200 mg PO TID PRN 07/03/16 09/14/19 Cyclobenzaprine [Flexeril] 10 mg PO TID PRN 09/07/19 09/14/19 Previous Rx's Medication Instructions Recorded Acetaminophen-Codeine 300-30mg 2 tab PO Q6H PRN #20 tablet 09/14/19 [Tylenol #3] Allergies Allergy/AdvReac Type Severity Reaction Status Date / Time simvastatin [From Zocor] Allergy Unknown Verified 03/11/20 20:43 ibuprofen [From Motrin] AdvReac Chest Pain Verified 03/11/20 20:43 morphine AdvReac Itching Verified 03/11/20 20:43 pregabalin [From Lyrica] AdvReac DEPRESSION. Verified 03/11/20 20:43 propranolol HCl AdvReac Chest Pain Verified 03/11/20 20:43 [From Inderal LA] Review of Systems ROS Statement: Those systems with pertinent positive or pertinent negative responses have been documented in the HPI. ROS Other: All systems not noted in ROS Statement are negative. Past Medical History Past Medical History: Fibromyalgia, Musculoskeletal Disorder Additional Past Medical History / Comment(s): Hx migraines. Hx elevated liver enzymes in 2011. Arthritis in back. Born with "Tethered spinal cord." Pain, numbness Rt neck. Varicose veins. Edema ankles occ. 7 live births - vaginal deliveries History of Any Multi-Drug Resistant Organisms: MRSA Date of last positivie culture/infection: 2013 MDRO Source:: armpits Past Surgical History: Back Surgery Additional Past Surgical History / Comment(s): D&C. Back surgery - 2005 and 2007 Past Anesthesia/Blood Transfusion Reactions: Family History of Problems w/ Anesthesia, Motion Sickness Additional Past Anesthesia/Blood Transfusion Reaction / Comment(s): Mother has PONV. Past Psychological History: Anxiety Past Alcohol Use History: Rare - Past Family History Mother Family Medical History: Cancer, Diabetes Mellitus, Hyperlipidemia, Hypertension Additional Family Medical History / Comment(s): skin CA General Exam Limitations: no limitations General appearance: alert, in no apparent distress, obese Head exam: Present: atraumatic, normocephalic, normal inspection Eye exam: Present: normal appearance, PERRL, EOMI Pupils: Present: normal accommodation ENT exam: Present: normal exam, normal oropharynx, mucous membranes moist Neck exam: Present: normal inspection, full ROM. Absent: tenderness Respiratory exam: Present: normal lung sounds bilaterally. Absent: respiratory distress Cardiovascular Exam: Present: regular rate, normal rhythm, normal heart sounds Extremities exam: Present: normal inspection (Mild swelling noted in the right lower extremity near the foot and ankle.), full ROM (Pain with plantar dorsiflexion of the foot), tenderness (Tenderness along the fifth metatarsal and midfoot. No medial lateral malleoli tenderness.), normal capillary refill, pedal edema (+1 nonpitting), calf tenderness (Mild calf tenderness near the popliteal region of the right leg.), other (+2 dorsalis pedis and posterior tibialis bilaterally.). 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 Return to emergency department if symptoms worsen. Take Tylenol for pain. Apply ice compress and keep the foot elevated. Is patient prescribed a controlled substance at d/c from ED?: No Referrals: Kraig Grace DO [Primary Care Provider] - 1-2 days Time of Disposition: 22:29
--- NOTE | 2020-03-11 22:03 | US ---
EXAMINATION TYPE: US venous doppler duplex LE RT DATE OF EXAM: 03/11/2020 9:54 PM COMPARISON: US CLINICAL HISTORY: Rule out DVT. Patient stated has increased right leg swelling today with more prono unced spider veins and pain medial right upper calf SIDE PERFORMED: Right TECHNIQUE: The lower extremity deep venous system is examined utilizing real time linear array sonog jasmina with graded compression, doppler sonography and color-flow sonography. VESSELS IMAGED: Common Femoral Vein Deep Femoral Vein Greater Saphenous Vein * Femoral Vein Popliteal Vein Small Saphenous Vein * Proximal Calf Veins (* superficial vessels) Right Leg: Negative for DVT. Negative for Superficial Vein Thrombosis at Right Great Saphenous Vein at patient's area of swelling. IMPRESSION: There is no evidence of deep vein thrombosis in the right leg. There is no evidence of a long saphenous vein superficial thrombosis.
[2020-03-11 22:47] VITALS: BP 131/98; PULSE 80; RESP 18; TEMP 98.3
== END 2020-03-11 22:46 | disposition home or self-care (01) ==
LOC: EC 20:25
DX: S93.601A Unspecified sprain of right foot, initial encounter (principal); Z88.8 Allergy status to other drugs, medicaments and biological substances; Z88.6 Allergy status to analgesic agent; Z88.5 Allergy status to narcotic agent; Z86.14 Personal history of Methicillin resistant Staphylococcus aureus infection; X50.9XXA Other and unspecified overexertion or strenuous movements or postures, initial encounter; Y93.89 Activity, other specified
CPT/HCPCS: 99284

== ENCOUNTER 2020-07-29 13:37 | Emergency (ER) | payer OTHER ==
--- NOTE | 2020-07-29 15:42 | ED ---
Extremity Problem HPI - General Chief complaint: Extremity Problem,Nontraumatic Stated complaint: Lower back pain Time Seen by Provider: 07/29/20 14:37 Source: patient Mode of arrival: wheelchair Limitations: no limitations - History of Present Illness Initial comments: 35-year-old female presenting to the emergency room with a chief complaint of tingling in both legs. Patient states 2 days ago she had a mammogram performed at [facility] and was advised that tingling back pain along with the possibility of a spinal headache may occur. However, she says the advised if she has any of the symptoms that she would need to be evaluated emergency department. Patient reports after procedure, she did have the tingling sensation in bilateral lower extremity, particularly on the anterior thighs that is gradually getting better. She also reports a headache, particularly after she standing for prolonged periods of time. She states the headache does appear to get better when she is laying flat or reclined. She denies any saddle anesthesia, urinary retention with or Flawn contents or bowel incontinence. Denies any night sweats or chills. Denies chest pain shortness of breath. Patient states it has been about 48 hours after the procedure at this point and she continues to have problems although they appear to be improving. - Related Data Home Medications Medication Instructions Recorded Confirmed Gabapentin [Neurontin] 1,200 mg PO TID PRN 07/03/16 09/14/19 Cyclobenzaprine [Flexeril] 10 mg PO TID PRN 09/07/19 09/14/19 Previous Rx's Medication Instructions Recorded Acetaminophen-Codeine 300-30mg 2 tab PO Q6H PRN #20 tablet 09/14/19 [Tylenol #3] Allergies Allergy/AdvReac Type Severity Reaction Status Date / Time simvastatin [From Zocor] Allergy Unknown Verified 07/29/20 13:56 ibuprofen [From Motrin] AdvReac Chest Pain Verified 07/29/20 13:56 morphine AdvReac Itching Verified 07/29/20 13:56 pregabalin [From Lyrica] AdvReac DEPRESSION. Verified 07/29/20 13:56 propranolol HCl AdvReac Chest Pain Verified 07/29/20 13:56 [From Inderal LA] Review of Systems ROS Statement: Those systems with pertinent positive or pertinent negative responses have been documented in the HPI. ROS Other: All systems not noted in ROS Statement are negative. Past Medical History Past Medical History: Fibromyalgia, Musculoskeletal Disorder Additional Past Medical History / Comment(s): Hx migraines. Hx elevated liver enzymes in 2012. Arthritis in back. Born with "Tethered spinal cord." Pain, numbness Rt neck. Varicose veins. Edema ankles occ. 7 live births - vaginal deliveries History of Any Multi-Drug Resistant Organisms: MRSA Date of last positivie culture/infection: 2013 MDRO Source:: armpits Past Surgical History: Back Surgery Additional Past Surgical History / Comment(s): D&C. Back surgery - 2005 and 2007 Past Anesthesia/Blood Transfusion Reactions: Family History of Problems w/ Anesthesia, Motion Sickness Additional Past Anesthesia/Blood Transfusion Reaction / Comment(s): Mother has PONV. Past Psychological History: Anxiety Smoking Status: Current every day smoker Past Alcohol Use History: Occasional Past Drug Use History: Marijuana - Past Family History Mother Family Medical History: Cancer, Diabetes Mellitus, Hyperlipidemia, Hypertension Additional Family Medical History / Comment(s): skin CA General Exam Limitations: no limitations General appearance: alert, in no apparent distress Head exam: Present: atraumatic, normocephalic, normal inspection Eye exam: Present: normal appearance, PERRL, EOMI Pupils: Present: normal accommodation Neck exam: Present: normal inspection, full ROM. Absent: tenderness Respiratory exam: Present: normal lung sounds bilaterally. Absent: respiratory distress, wheezes, rales Cardiovascular Exam: Present: regular rate, normal rhythm, normal heart sounds GI/Abdominal exam: Present: soft. Absent: distended, tenderness, guarding, rebound, rigid Extremities exam: Present: normal inspection (Scarring in the lower back from previous surgery), full ROM, normal capillary refill, other (+2 dorsalis pedis and posterior tibials bilateral.). Absent: tenderness, pedal edema, joint swelling, calf tenderness Back exam: Present: normal inspection, full ROM, tenderness, paraspinal tenderness (Right paraspinal). Absent: CVA tenderness (R), CVA tenderness (L), muscle spasm Neurological exam: Present: alert, oriented X3, CN II-XII intact, normal gait, reflexes normal Expanded Sensory exam: Upper Extremity Light Touch: Normal, Upper Extremity Pin Prick: Normal, Lower Extremity Light Touch: Normal, Lower Extremity Pin Prick: Normal Motor strength exam: RUE: 5, LUE: 5, RLE: 5, LLE: 5 DTR: Patellar (R): 4+, Patellar (L): 4+, Achilles Tendon (R): 4+, Achilles Tendon (L): 4+ Psychiatric exam: Present: normal affect, normal mood. Absent: depressed, agitated, anxious, flat affect Skin exam: Present: warm, dry, intact, normal color Course Vital Signs 07/29/20 07/29/20 07/29/20 13:50 15:15 16:15 Temperature 97.8 F 98.1 F Pulse Rate 69 81 69 Respiratory 16 20 18 Rate Blood Pressure 108/59 119/62 112/68 O2 Sat by Pulse 96 98 99 Oximetry Medical Decision Making - Medical Decision Making 35-year-old female resenting to emergency Department with chief complaint of numbness in the leg. On physical examination, she is neurovascularly intact in bilateral lower tremors. No cauda equina. Some right paraspinal lower back pain. On reevaluation patient reports the paresthesias along the anterior aspect of resolved and now she has only tingling sensation in the lateral aspect of her right lower leg. No actual pain. I spoke with Dr. obrien from [facility] performed the myelogram. He states that the symptoms patient is experiencing are common postprocedural symptoms. He also advised caffeine and IV fluids. Patient was given 250 mg of caffeine makes with 1 L bolus. On reevaluation patient reports improvement in symptoms. Patient only has an appointment to follow up with neurology. Patient is able to ambulate without any difficulty. Strict return parameters were thoroughly discussed with patient was up standing and agreeable. Case discussed with physician. - Lab Data Result diagrams: 07/29/20 15:31 07/29/20 15:31 Lab Results 07/29/20 07/29/20 Range/Units 15:31 15:31 WBC 9.7 (3.8-10.6) k/uL RBC 5.39 (3.80-5.40) m/uL Hgb 15.6 (11.4-16.0) gm/dL Hct 46.5 H (34.0-46.0) % MCV 86.3 (80.0-100.0) fL MCH 29.0 (25.0-35.0) pg MCHC 33.6 (31.0-37.0) g/dL RDW 13.3 (11.5-15.5) % Plt Count 284 (150-450) k/uL MPV 7.3 Neutrophils % 69 % Lymphocytes % 24 % Monocytes % 4 % Eosinophils % 1 % Basophils % 1 % Neutrophils # 6.7 (1.3-7.7) k/uL Lymphocytes # 2.4 (1.0-4.8) k/uL Monocytes # 0.4 (0-1.0) k/uL Eosinophils # 0.1 (0-0.7) k/uL Basophils # 0.1 (0-0.2) k/uL Sodium 138 (137-145) mmol/L Potassium 4.2 (3.5-5.1) mmol/L Chloride 105 (98-107) mmol/L Carbon Dioxide 25 (22-30) mmol/L Anion Gap 8 mmol/L BUN 11 (7-17) mg/dL Creatinine 0.83 (0.52-1.04) mg/dL Est GFR (CKD-EPI)AfAm >90 (>60 ml/min/1.73 sqM) Est GFR (CKD-EPI)NonAf >90 (>60 ml/min/1.73 sqM) Glucose 101 H (74-99) mg/dL Calcium 9.4 (8.4-10.2) mg/dL Total Bilirubin 0.5 (0.2-1.3) mg/dL AST 23 (14-36) U/L ALT 21 (4-34) U/L Alkaline Phosphatase 112 (38-126) U/L Total Protein 8.4 H (6.3-8.2) g/dL Albumin 4.5 (3.5-5.0) g/dL Disposition Clinical Impression: Lower back pain, Spinal headache Disposition: HOME SELF-CARE Condition: Stable Instructions (If sedation given, give patient instructions): Back Pain (ED) Additional Instructions: Drink plenty of fluids and rest. Follow-up with your physician. Return to emergency department if symptoms worsen. Is patient prescribed a controlled substance at d/c from ED?: No Referrals: None,Stated [Primary Care Provider] - 1-2 days Time of Disposition: 16:38
[2020-07-29 15:43] LABS: Basophils # (A) 0.1 k/uL (0-0.2); Basophils % (A) 1 %; Eosinophils # (A) 0.1 k/uL (0-0.7); Eosinophils % (A) 1 %; HCT 46.5 % (34.0-46.0); HGB 15.6 gm/dL (11.4-16.0); Lymphocytes # (A) 2.4 k/uL (1.0-4.8); Lymphocytes % (A) 24 %; MCHC 33.6 g/dL (31.0-37.0); MCV 86.3 fL (80.0-100.0); Mean Platelet Volume 7.3; Monocytes # (A) 0.4 k/uL (0-1.0); Monocytes % (A) 4 %; Neutrophils # (A) 6.7 k/uL (1.3-7.7); Neutrophils % (A) 69 %; Platelet Count 284 k/uL (150-450); RBC 5.39 m/uL (3.80-5.40); RDW 13.3 % (11.5-15.5); WBC 9.7 k/uL (3.8-10.6)
[2020-07-29 15:55] LABS: ALT 21 U/L (4-34); AST 23 U/L (14-36); African American GFR (CKD) >90 (>60 ml/min/1.73 sqM); Albumin 4.5 g/dL (3.5-5.0); Alkaline Phosphatase 112 U/L (38-126); Anion Gap 8 mmol/L; Blood Urea Nitrogen 11 mg/dL (7-17); Calcium 9.4 mg/dL (8.4-10.2); Carbon Dioxide 25 mmol/L (22-30); Chloride 105 mmol/L (98-107); Glucose 101 mg/dL (74-99); Non-African American GFR(CKD) >90 (>60 ml/min/1.73 sqM); Potassium 4.2 mmol/L (3.5-5.1); Sodium 138 mmol/L (137-145); Total Bilirubin 0.5 mg/dL (0.2-1.3); Total Protein 8.4 g/dL (6.3-8.2)
[2020-07-29 16:35] VITALS: BP 112/68; PULSE 69; RESP 18; TEMP 98.1
[2020-07-29] MEDS ORDERED: CAFFEINE-SODIUM BENZOATE 500 MG in SODIUM CHLORIDE 0.9% 1,000 ML IVPB ONE (16:45)
== END 2020-07-29 17:55 | disposition home or self-care (01) ==
LOC: EC 13:37
DX: G97.1 Other reaction to spinal and lumbar puncture (principal); M54.5 Low back pain; R20.0 Anesthesia of skin; R25.1 Tremor, unspecified; M79.7 Fibromyalgia; G43.909 Migraine, unspecified, not intractable, without status migrainosus; F41.9 Anxiety disorder, unspecified; F17.200 Nicotine dependence, unspecified, uncomplicated; Z88.8 Allergy status to other drugs, medicaments and biological substances; Z88.6 Allergy status to analgesic agent; Z88.5 Allergy status to narcotic agent; Z98.890 Other specified postprocedural states; Z86.14 Personal history of Methicillin resistant Staphylococcus aureus infection
CPT/HCPCS: 36415; 80053; 85025; 96365; 99283

== ENCOUNTER 2020-10-18 19:04 | Emergency (ER) | payer OTHER ==
[2020-10-18] MEDS ORDERED: CAFFEINE-SODIUM BENZOATE 1,000 MG in SODIUM CHLORIDE 0.9% 1,000 ML IVPB ONE (19:34)
[2020-10-18] MEDS ORDERED: KETOROLAC 15 MG/ML 1 ML VIAL IVP STA (19:35)
--- NOTE | 2020-10-18 19:41 | ED ---
General Adult HPI - General Chief complaint: Back Pain/Injury Stated complaint: spinal headache Time Seen by Provider: 10/18/20 19:14 Source: patient, RN notes reviewed Mode of arrival: ambulatory Limitations: no limitations - History of Present Illness Initial comments: 35-year-old female with a past medical history of migraines, fibromyalgia, back surgery in 2007 for tethered spinal cord presents to the emergency department for back pain and a headache. Patient reports that she is court ordered to have an income for custody purposes. She states that she went back to work yesterday and they did not have her on light duty like they're supposed to. Patient states she was lifting and she is not supposed to do that. She reports that she injured her back reaching for something. States that because she has had more back spasms she also did help to spinal headache. Reports she has been getting spinal headaches since her surgery 2007 and needs caffeine. Patient reports she can also have Toradol just cannot have Motrin. Patient reports she needs to days off work. Patient denies any bladder or bowel changes, fevers, weakness of the lower extremities, saddle anesthesia.Patient has no other complaints at this time including shortness of breath, chest pain, abdominal pain, nausea or vomiting,or visual changes. - Related Data Home Medications Medication Instructions Recorded Confirmed Gabapentin 300 mg PO TID PRN 10/18/20 10/18/20 HYDROcodone/APAP 10-325MG [Lilly 1 tab PO TID PRN 10/18/20 10/18/20 10-325] Allergies Allergy/AdvReac Type Severity Reaction Status Date / Time simvastatin [From Zocor] Allergy Unknown Verified 10/18/20 20:24 ibuprofen [From Motrin] AdvReac Chest Pain Verified 10/18/20 20:24 morphine AdvReac Itching Verified 10/18/20 20:24 pregabalin [From Lyrica] AdvReac DEPRESSION. Verified 10/18/20 20:24 propranolol HCl AdvReac Chest Pain Verified 10/18/20 20:24 [From Inderal LA] Review of Systems ROS Statement: Those systems with pertinent positive or pertinent negative responses have been documented in the HPI. ROS Other: All systems not noted in ROS Statement are negative. Past Medical History Past Medical History: Fibromyalgia, Musculoskeletal Disorder Additional Past Medical History / Comment(s): Hx migraines. Hx elevated liver enzymes in 2011. Arthritis in back. Born with "Tethered spinal cord." Pain, numbness Rt neck. Varicose veins. Edema ankles occ. 7 live births - vaginal deliveries History of Any Multi-Drug Resistant Organisms: MRSA Date of last positivie culture/infection: 2013 MDRO Source:: armpits Past Surgical History: Back Surgery Additional Past Surgical History / Comment(s): D&C. Back surgery - 2005 and 2007 Past Anesthesia/Blood Transfusion Reactions: Family History of Problems w/ Anesthesia, Motion Sickness Additional Past Anesthesia/Blood Transfusion Reaction / Comment(s): Mother has PONV. Past Psychological History: Anxiety Smoking Status: Current every day smoker Past Alcohol Use History: Occasional Past Drug Use History: Marijuana - Past Family History Mother Family Medical History: Cancer, Diabetes Mellitus, Hyperlipidemia, Hypertension Additional Family Medical History / Comment(s): skin CA General Exam Limitations: no limitations General appearance: alert, in no apparent distress Head exam: Present: atraumatic, normocephalic, normal inspection Eye exam: Present: normal appearance, PERRL, EOMI. Absent: conjunctival injection ENT exam: Present: normal exam, mucous membranes moist Neck exam: Present: normal inspection, full ROM. Absent: tenderness Respiratory exam: Present: normal lung sounds bilaterally. Absent: respiratory distress, wheezes Cardiovascular Exam: Present: regular rate, normal rhythm, normal heart sounds. Absent: systolic murmur, diastolic murmur, rubs, gallop, clicks Extremities exam: Present: normal capillary refill (Capillary refill and the lower extremities is less than 2 seconds, equal bilaterally) Back exam: Present: full ROM (Strength 5 out of 5 in lower extremities), paraspinal tenderness, vertebral tenderness (Generalized vertebral and paraspinal lumbar tenderness), other (Patient is ambulatory without difficulty) Neurological exam: Present: alert, oriented X3, normal gait Expanded Motor strength exam: RUE: 5, LUE: 5, RLE: 5, LLE: 5 Course Vital Signs 10/18/20 19:06 Temperature 97.8 F Pulse Rate 87 Respiratory 20 Rate Blood Pressure 116/76 O2 Sat by Pulse 99 Oximetry Medical Decision Making - Medical Decision Making HPI and physical exam as documented. NO red flag symptoms. No neurologic deficits in the upper or lower extremities. Patient reports she is here for pain control and a work note. Patient was given IV caffeine per her request. This completely resolved her headache. She was given Toradol for back pain which did help to a degree. Patient will follow up with her neurosurgeon tomorrow. She will return here for any worsening symptoms. I discussed this case with attending Dr. Luong who agrees with this assessment and treatment plan. Disposition Clinical Impression: Mechanical back pain, Cephalgia Disposition: HOME SELF-CARE Condition: Good Instructions (If sedation given, give patient instructions): Acute Headache (ED), Acute Low Back Pain (ED) Additional Instructions: Please follow up with your your doctor tomorrow. Continue to take your home pain medications. Return to the emergency room for any worsening symptoms such as bladder or bowel changes, fevers, weakness of the legs, or numbness in the groin or buttock.. Is patient prescribed a controlled substance at d/c from ED?: No Referrals: Tate Doyle MD [REFERRING] - 1-2 days Time of Disposition: 20:58
[2020-10-18] MEDS ORDERED: diphenhydrAMINE 50 MG/ML 1 ML VIAL IVP STA (20:44)
[2020-10-18] MEDS ORDERED: METOCLOPRAMIDE 5 MG/ML 2 ML VIAL IVP STA (20:44)
[2020-10-18 21:25] VITALS: BP 125/58; PULSE 63; RESP 16; TEMP 98
== END 2020-10-18 21:25 | disposition home or self-care (01) ==
LOC: EC 19:04
DX: M54.9 Dorsalgia, unspecified (principal); G43.909 Migraine, unspecified, not intractable, without status migrainosus; F17.200 Nicotine dependence, unspecified, uncomplicated; Z88.5 Allergy status to narcotic agent; Z88.6 Allergy status to analgesic agent; Z88.8 Allergy status to other drugs, medicaments and biological substances; Z86.14 Personal history of Methicillin resistant Staphylococcus aureus infection
CPT/HCPCS: 99283; 96365; 96375; J1885

== ENCOUNTER → 2020-10-19 | Outpatient (CLI) | payer OTHER ==
--- NOTE | 2020-10-19 12:56 | XR ---
EXAMINATION TYPE: XR cervical spine comp DATE OF EXAM: 10/19/2020 COMPARISON: 07/27/2019 HISTORY: Pain right side neck TECHNIQUE: Five-view cervical spine FINDINGS: Anterior cervical fusion is evident. Mild foraminal narrowing is present on the left at C4- 5 C5-6. Right foramen are patent. Prevertebral space is normal. Posterior spinal lamellar line is int act. There is some disc space narrowing at the anterior fusion of C5-6. Remaining disc heights are pr eserved. IMPRESSION: 1. Postsurgical changes. 2. Some mild left foraminal narrowing at C4-5 C5-6 may be present.
== END | disposition home or self-care (01) ==
LOC: RADXRMAIN 12:30
PROVIDERS: ATTEND Internal Medicine
DX: M54.2 Cervicalgia (principal); Z98.1 Arthrodesis status
CPT/HCPCS: 72050

== ENCOUNTER 2021-03-21 | Emergency (ER) | payer OTHER | END 2021-03-21 15:16 | disposition home or self-care (01) ==

== ENCOUNTER 2021-05-01 12:18 | Emergency (ER) | payer OTHER ==
[2021-05-01] MEDS ORDERED: SODIUM CHLORIDE 0.9% 1,000 ML IV STA (13:49)
[2021-05-01] MEDS ORDERED: CAFFEINE CITRATE 60 MG/3 ML VIAL IV PRN (13:50)
[2021-05-01 14:21] LABS: Basophils % (A) 1 %; Eosinophils # (A) 0.2 k/uL (0-0.7); Eosinophils % (A) 3 %; HCT 44.7 % (34.0-46.0); HGB 15.2 gm/dL (11.4-16.0); Lymphocytes # (A) 2.3 k/uL (1.0-4.8); Lymphocytes % (A) 34 %; MCH 29.8 pg (25.0-35.0); MCHC 33.9 g/dL (31.0-37.0); MCV 87.7 fL (80.0-100.0); Mean Platelet Volume 7.6; Monocytes # (A) 0.3 k/uL (0-1.0); Monocytes % (A) 5 %; Neutrophils # (A) 3.9 k/uL (1.3-7.7); Neutrophils % (A) 56 %; Platelet Count 285 k/uL (150-450); RDW 13.3 % (11.5-15.5); WBC 6.9 k/uL (3.8-10.6)
[2021-05-01 14:34] LABS: ALT 31 U/L (4-34); AST 39 U/L (14-36); African American GFR (CKD) >90 (>60 ml/min/1.73 sqM); Albumin 4.4 g/dL (3.5-5.0); Alkaline Phosphatase 80 U/L (38-126); Amylase 51 U/L (30-110); Anion Gap 7 mmol/L; Blood Urea Nitrogen 14 mg/dL (7-17); Calcium 9.4 mg/dL (8.4-10.2); Carbon Dioxide 23 mmol/L (22-30); Chloride 108 mmol/L (98-107); Glucose 103 mg/dL (74-99); Lipase 70 U/L (23-300); Non-African American GFR(CKD) >90 (>60 ml/min/1.73 sqM); Potassium 4.8 mmol/L (3.5-5.1); Sodium 138 mmol/L (137-145); Total Bilirubin 0.5 mg/dL (0.2-1.3); Total Protein 7.6 g/dL (6.3-8.2)
--- NOTE | 2021-05-01 15:36 | XR ---
EXAMINATION TYPE: XR cervical spine limited DATE OF EXAM: 05/01/2021 Comparison: 10/19/2020 Clinical History: 35-year-old female neck pain, previous surgery. Findings: No predental space widening or prevertebral soft tissue swelling. ACDF redemonstrated C5-C6. Minimal endplate spondylosis both above and below the fusion at C4-C5 and C6-C7. Reversal of the normal cervi hina lordosis but otherwise preserved alignment. Uncovertebral joint arthropathy mid to lower cervical spine. Normal odontoid view. Impression: Status post C5-C6 ACDF. Minimal endplate spondylosis C4-C5 and C6-C7, above and below the fusion. Rev ersal of the normal cervical lordosis. No malalignment.
[2021-05-01] MEDS ORDERED: CAFFEINE-SODIUM BENZOATE 1,000 MG in SODIUM CHLORIDE 0.9% 1,000 ML IVPB ONE (15:50)
[2021-05-01] MEDS ORDERED: HYDROmorphone 1 MG/ML 1 ML SYRINGE IVP STA (16:29)
[2021-05-01 16:42] VITALS: RESP 16
--- NOTE | 2021-05-01 16:55 | ED ---
General Adult HPI - General Chief complaint: Headache Stated complaint: Spinal cord leak Time Seen by Provider: 05/01/21 13:28 Source: patient, RN notes reviewed Mode of arrival: ambulatory Limitations: no limitations - History of Present Illness Initial comments: Patient is a 35-year-old female that presents to emergency room complaining of headache. She notes that she recently try to go back to work due to financial issues. She notes that she does have a history of headaches and spinal headaches due to spina bifida and surgical correction. She notes that she was lifting which she was not supposed to do at work in feels like she hurt her neck and giving her some headache. Patient was otherwise a well-appearing 35-year-old female in no apparent distress or pain. She denied any chest pain shortness of breath nausea vomiting diarrhea constipation fever fatigue chills. - Related Data Home Medications Medication Instructions Recorded Confirmed Butalb/APAP/Caff 50-325-40Mg 1 tab PO BID PRN 03/21/21 03/21/21 [Fioricet 50-325-40] Gabapentin 800 mg PO TID 03/21/21 03/21/21 HYDROcodone/APAP 10-325MG [[place] 1 tab PO QID PRN 03/21/21 03/21/21 10-325] Naproxen 500 mg PO DAILY PRN 03/21/21 03/21/21 hydrOXYzine HCL [Atarax] 50 mg PO QID PRN 03/21/21 03/21/21 tiZANidine [Zanaflex] 4 mg PO HS 03/21/21 03/21/21 Allergies Allergy/AdvReac Type Severity Reaction Status Date / Time simvastatin [From Zocor] Allergy Unknown Verified 05/01/21 13:04 ibuprofen [From Motrin] AdvReac Chest Pain Verified 05/01/21 13:04 morphine AdvReac Itching Verified 05/01/21 13:04 pregabalin [From Lyrica] AdvReac DEPRESSION. Verified 05/01/21 13:04 propranolol HCl AdvReac Chest Pain Verified 05/01/21 13:04 [From Inderal LA] Review of Systems ROS Statement: Those systems with pertinent positive or pertinent negative responses have been documented in the HPI. ROS Other: All systems not noted in ROS Statement are negative. Past Medical History Past Medical History: Fibromyalgia, Musculoskeletal Disorder Additional Past Medical History / Comment(s): Hx migraines. Hx elevated liver enzymes in 2011. Arthritis in back. Born with "Tethered spinal cord." Pain, numbness Rt neck, Varicose veins History of Any Multi-Drug Resistant Organisms: MRSA Date of last positivie culture/infection: 2013 MDRO Source:: armpits Past Surgical History: Back Surgery Additional Past Surgical History / Comment(s): D&C. Back surgery - 2006 and 2007, neck surgery 2019 Past Anesthesia/Blood Transfusion Reactions: Family History of Problems w/ Anesthesia, Motion Sickness Additional Past Anesthesia/Blood Transfusion Reaction / Comment(s): Mother has PONV. Past Psychological History: Anxiety Smoking Status: Current every day smoker Past Alcohol Use History: Occasional Past Drug Use History: Marijuana - Past Family History Mother Family Medical History: Cancer, Diabetes Mellitus, Hyperlipidemia, Hypertension Additional Family Medical History / Comment(s): skin CA General Exam Limitations: no limitations General appearance: alert, in no apparent distress, obese Head exam: Present: atraumatic, normocephalic, normal inspection Eye exam: Present: normal appearance, PERRL, EOMI. Absent: scleral icterus, conjunctival injection, periorbital swelling Neck exam: Present: normal inspection Respiratory exam: Present: normal lung sounds bilaterally. Absent: respiratory distress, wheezes, rales, rhonchi, stridor Cardiovascular Exam: Present: regular rate, normal rhythm, normal heart sounds. Absent: systolic murmur, diastolic murmur, rubs, gallop, clicks GI/Abdominal exam: Present: soft, normal bowel sounds. Absent: distended, tenderness, guarding, rebound, rigid Extremities exam: Present: normal inspection, full ROM, normal capillary refill. Absent: tenderness, pedal edema, joint swelling, calf tenderness Neurological exam: Present: alert, oriented X3 Psychiatric exam: Present: normal affect, normal mood Skin exam: Present: warm, dry, intact, normal color. Absent: rash Course Vital Signs 05/01/21 05/01/21 05/01/21 13:02 14:30 14:41 Temperature 98.3 F Pulse Rate 76 70 97 Respiratory 18 16 22 Rate Blood Pressure 127/77 133/90 112/64 O2 Sat by Pulse 98 99 94 L Oximetry 05/01/21 05/01/21 16:11 16:40 Temperature Pulse Rate 60 65 Respiratory 18 16 Rate Blood Pressure 133/90 131/86 O2 Sat by Pulse 97 98 Oximetry Medical Decision Making - Medical Decision Making Patient is a 35-year-old female complaining of a headache. Labs, 1 L normal saline, x-ray of the cervical spine,Caffeine sodium benzoate 1000 mg, 1 mg of Dilaudid Labs unremarkable. X-ray of the neck negative for any acute osseous abnormality. Patient did report to nurse that she wants a work note so she does not have to lift over a certain amount of weight. Case discussed with Dr. Otoole, patient can discharge home. - Lab Data Result diagrams: 05/01/21 14:13 05/01/21 14:13 Lab Results 05/01/21 05/01/21 Range/Units 14:13 14:13 WBC 6.9 (3.8-10.6) k/uL RBC 5.10 (3.80-5.40) m/uL Hgb 15.2 (11.4-16.0) gm/dL Hct 44.7 (34.0-46.0) % MCV 87.7 (80.0-100.0) fL MCH 29.8 (25.0-35.0) pg MCHC 33.9 (31.0-37.0) g/dL RDW 13.3 (11.5-15.5) % Plt Count 285 (150-450) k/uL MPV 7.6 Neutrophils % 56 % Lymphocytes % 34 % Monocytes % 5 % Eosinophils % 3 % Basophils % 1 % Neutrophils # 3.9 (1.3-7.7) k/uL Lymphocytes # 2.3 (1.0-4.8) k/uL Monocytes # 0.3 (0-1.0) k/uL Eosinophils # 0.2 (0-0.7) k/uL Basophils # 0.0 (0-0.2) k/uL Sodium 138 (137-145) mmol/L Potassium 4.8 (3.5-5.1) mmol/L Chloride 108 H (98-107) mmol/L Carbon Dioxide 23 (22-30) mmol/L Anion Gap 7 mmol/L BUN 14 (7-17) mg/dL Creatinine 0.68 (0.52-1.04) mg/dL Est GFR (CKD-EPI)AfAm >90 (>60 ml/min/1.73 sqM) Est GFR (CKD-EPI)NonAf >90 (>60 ml/min/1.73 sqM) Glucose 103 H (74-99) mg/dL Calcium 9.4 (8.4-10.2) mg/dL Total Bilirubin 0.5 (0.2-1.3) mg/dL AST 39 H (14-36) U/L ALT 31 (4-34) U/L Alkaline Phosphatase 80 (38-126) U/L Total Protein 7.6 (6.3-8.2) g/dL Albumin 4.4 (3.5-5.0) g/dL Amylase 51 (30-110) U/L Lipase 70 (23-300) U/L - Radiology Data Radiology results: report reviewed, image reviewed X-ray of the cervical spine: Status post C5-C6 ACDF. Minimal endplate spondylosis C4-C5 and C6-C7 above and below the fusion. Reversal of the normal cervical lordosis no malalignment. Disposition Clinical Impression: Migraine headache Disposition: HOME SELF-CARE Condition: Stable Additional Instructions: Please return to the Emergency Department if symptoms worsen or any other concerns. Follow-up primary care next 1-2 days. Follow-up with neurologist as needed. Take, Motrin as needed for pain. Is patient prescribed a controlled substance at d/c from ED?: No Referrals: Tate Doyle MD [Primary Care Provider] - 1-2 days Time of Disposition: 16:55
[2021-05-01 17:16] VITALS: BP 120/54; PULSE 59; TEMP 98.2
== END 2021-05-01 17:10 | disposition home or self-care (01) ==
LOC: EC 12:18
DX: G43.909 Migraine, unspecified, not intractable, without status migrainosus (principal); M79.7 Fibromyalgia; F17.200 Nicotine dependence, unspecified, uncomplicated; Z79.899 Other long term (current) drug therapy; Z88.6 Allergy status to analgesic agent; Z88.5 Allergy status to narcotic agent; Z88.8 Allergy status to other drugs, medicaments and biological substances
CPT/HCPCS: 36415; 80053; 82150; 83690; 85025; 72040; 99284; 96365; 96375; J1170

== ENCOUNTER 2024-09-09 19:19 | Emergency (ER) | payer MEDICARE, OTHER ==
[2024-09-09 19:27] VITALS: TEMP 98.3
--- NOTE | 2024-09-09 19:34 | ED ---
General Adult HPI - General Chief complaint: Headache Stated complaint: JACKI, L arm pain Time Seen by Provider: 09/09/24 19:32 Source: patient Mode of arrival: ambulatory Limitations: no limitations - History of Present Illness Initial comments: Patient presents to the ED with her mother for evaluation. Patient states that she has had an occipital headache with pain shooting to the left side of her neck and her left arm for the past hour or so. Patient states that she had a similar headache around noon today, but not as severe. Patient states that she has a history of migraine headaches, and she states that she has had similar headaches in the past, but never this severe. Patient also states that she has had pleuritic left-sided chest pain for the past couple of days. Patient states that she was seen at an urgent care for her chest pain, and she was told that she may have "inflamed lungs". Patient admits to having mild dyspnea as well. Patient is crying and anxious in appearance on arrival to the ED. Patient denies any known trauma or injury, sudden onset of headache, LOC, neck pain or stiffness, focal numbness/weakness/neuro deficit, visual changes, speech difficulty, back pain, cough or cold symptoms, palpitations, dizziness, n ausea/vomiting/diarrhea, bloody or melanotic stool, dysuria or urinary symptoms, decreased urine output, leg or calf swelling or pain, or any other symptoms or complaints. Patient denies taking any medication for her pain today. - Related Data Home Medications Medication Instructions Recorded Confirmed Butalb/APAP/Caff 50-325-40Mg 1 tab PO BID PRN 03/21/21 03/21/21 [Fioricet 50-325-40] Gabapentin 800 mg PO TID 03/21/21 03/21/21 HYDROcodone/APAP 10-325MG [[place] 1 tab PO QID PRN 03/21/21 03/21/21 10-325] Naproxen 500 mg PO DAILY PRN 03/21/21 03/21/21 hydrOXYzine HCL [Atarax] 50 mg PO QID PRN 03/21/21 03/21/21 tiZANidine [Zanaflex] 4 mg PO HS 03/21/21 03/21/21 Allergies Allergy/AdvReac Type Severity Reaction Status Date / Time simvastatin [From Zocor] Allergy Unknown Verified 09/09/24 19:27 ibuprofen [From Motrin] AdvReac Chest Pain Verified 09/09/24 19:27 morphine AdvReac Itching Verified 09/09/24 19:27 pregabalin [From Lyrica] AdvReac DEPRESSION. Verified 09/09/24 19:27 propranolol HCl AdvReac Chest Pain Verified 09/09/24 19:27 [From Inderal LA] Review of Systems ROS Statement: Those systems with pertinent positive or pertinent negative responses have been documented in the HPI. ROS Other: All systems not noted in ROS Statement are negative. Past Medical History Past Medical History: Fibromyalgia, Musculoskeletal Disorder Additional Past Medical History / Comment(s): Hx migraines. Hx elevated liver enzymes in 2011. Arthritis in back. Born with "Tethered spinal cord." Pain, numbness Rt neck, Varicose veins History of Any Multi-Drug Resistant Organisms: MRSA Date of last positivie culture/infection: 2013 MDRO Source:: armpits Past Surgical History: Back Surgery Additional Past Surgical History / Comment(s): D&C. Back surgery - 2005 and 2007, neck surgery 2019 Past Anesthesia/Blood Transfusion Reactions: Family History of Problems w/ Anesthesia, Motion Sickness Additional Past Anesthesia/Blood Transfusion Reaction / Comment(s): Mother has PONV. Past Psychological History: Anxiety Smoking Status: Former smoker Past Alcohol Use History: Occasional Past Drug Use History: Marijuana - Past Family History Mother Family Medical History: Cancer, Diabetes Mellitus, Hyperlipidemia, Hypertension Additional Family Medical History / Comment(s): skin CA General Exam Limitations: no limitations General appearance: alert, anxious, other (Tearful) Head exam: Present: atraumatic, normocephalic Eye exam: Present: PERRL, EOMI ENT exam: Present: mucous membranes moist Neck exam: Present: normal inspection, full ROM, other (Trachea is in midline; no nuchal rigidity or meningeal signs are present on exam). Absent: tenderness, meningismus Respiratory exam: Present: normal lung sounds bilaterally. Absent: respiratory distress, wheezes, rales, rhonchi, stridor, chest wall tenderness Cardiovascular Exam: Present: regular rate, normal rhythm, normal heart sounds, other (Normal radial pulses bilaterally) GI/Abdominal exam: Present: soft. Absent: distended, tenderness, guarding Extremities exam: Present: other (Negative Homans' sign bilaterally). Absent: tenderness, pedal edema, calf tenderness Neurological exam: Present: alert, oriented X3, CN II-XII intact. Absent: motor sensory deficit Psychiatric exam: Present: anxious, other (Tearful) Skin exam: Present: warm, dry, intact, normal color Course Vital Signs 09/09/24 09/09/24 09/09/24 19:24 20:12 21:32 Temperature 98.3 F Pulse Rate 80 67 74 Respiratory 17 15 14 Rate Blood Pressure 113/77 115/62 104/59 O2 Sat by Pulse 100 95 99 Oximetry 09/09/24 22:43 Temperature Pulse Rate 72 Respiratory 20 Rate Blood Pressure 105/58 O2 Sat by Pulse 95 Oximetry - Reevaluation(s) Reevaluation #1: 09/09/24 22:59 Patient states that her symptoms have improved with ED management. Patient denies development of any new symptoms while in the ED. Patient continues to have a normal/nonfocal neurological exam. Patient remains breathing comfortably with a normal room air oxygen saturation. Patient and mother are aware of the patient's test results, and patient feels comfortable being discharged home at this time. She was counseled about pleuritic chest pain and headaches. She was clearly explained return and follow-up instructions. She was instructed to follow-up closely with her primary care provider. She feels comfortable with this plan. EKG Findings - EKG Comments: EKG Findings:: ED physician interpretation (interpreted by me): Normal sinus rhythm, ventricular rate of 79 bpm, no ectopy, normal [place] and QRS intervals, normal QT interval, normal axis, no ST or T wave abnormality Medical Decision Making - Medical Decision Making Was pt. sent in by a medical professional or institution (Dr. PA, MACHINES TECHNICIAN, urgent care, hospital, or [place] health care facility...) When possible be specific @ -No Did you speak to anyone other than the patient for history (EMS, parent, family, police, friend...)? What history was obtained from this source @ -No Did you review nursing and triage notes (agree or disagree)? Why? @ -I reviewed and agree with nursing and triage notes Were old charts reviewed (outside hosp., previous admission, EMS record, old EKG, old radiological studies, urgent care reports/EKG's, [place] health care facility records)? Report findings @ -No old charts were reviewed Differential Diagnosis (chest pain, altered mental status, abdominal pain women, abdominal pain men, vaginal bleeding, weakness, fever, dyspnea, syncope, h eadache, dizziness, GI bleed, back pain, seizure, CVA, palpatations, mental health, musculoskeletal)? @ -Headache, migraine, cluster headache, tension headache, intracranial hemorrhage, intracranial mass, chest pain, pleurisy, pneumothorax, pulmonary embolism, ACS, pleural effusion, pneumonia, anxiety, this is not meant to be a complete list. EKG interpreted by me (3pts min.). @ -As above X-rays interpreted by me (1pt min.). @ -Chest x-ray was reviewed myself and shows no acute cardiopulmonary disease. I agree with the radiologist's interpretation as above. CT interpreted by me (1pt min.). @ -Noncontrast head CT and CT angiography chest with IV contrast were both reviewed myself. They do not show any acute pathology. I agree with the radiologist's interpretations as above. U/S interpreted by me (1pt. min.). @ -None done What testing was considered but not performed or refused? (CT, X-rays, U/S, labs)? Why? @ -None What meds were considered but not given or refused? Why? @ -None Did you discuss the management of the patient with other professionals (professionals i.e. , PA, MACHINES TECHNICIAN, lab, RT, psych nurse, sr. social media & mobile manager, animal park code enforcement officer, teacher, youth probation officer, high risk case manager)? Give summary @ -No Was smoking cessation discussed for >3mins.? @ -No Was critical care preformed (if so, how long)? @ -No Were there social determinants of health that impacted care today? How? (Homelessness, low income, unemployed, alcoholism, drug addiction, transportation, low edu. Level, literacy, decrease access to med. care, alf, rehab)? @ -No Was there de-escalation of care discussed even if they declined (Discuss DNR or withdrawal of care, Hospice)? DNR status @ -No What co-morbidities impacted this encounter? (DM, HTN, Smoking, COPD, CAD, Cancer, CVA, ARF, Chemo, Hep., AIDS, mental health diagnosis, sleep apnea, morbid obesity)? @ -None Was patient admitted / discharged? Hospital course, mention meds given and route, prescriptions, significant lab abnormalities, going to OR and other pertinent info. @ -Patient reports that her symptoms have improved with ED treatment. Patient states that her headache and chest pain have both improved. Patient is no longer anxious in appearance. Patient's EKG, labs and imaging studies are all fairly unremarkable. Patient has a normal/nonfocal neurological exam. I do not suspect an emergent medical condition at this time. Will discharge patient home with her mother at this time. Patient feels comfortable with this plan. Undiagnosed new problem with uncertain prognosis? @ -No Drug Therapy requiring intensive monitoring for toxicity (Heparin, Nitro, Insulin, Cardizem)? @ -No Were any procedures done? @ -No Diagnosis/symptom? @ -Headache Acute, or Chronic, or Acute on Chronic? @ -Acute Uncomplicated (without systemic symptoms) or Complicated (systemic symptoms)? @ -Default Side effects of treatment? @ -No Exacerbation, Progression, or Severe Exacerbation? @ -No Poses a threat to life or bodily function? How? (Chest pain, [place], MT, pneumonia, PE, COPD, DKA, ARF, appy, cholecystitis, CVA, Diverticulitis, Homicidal, S uicidal, threat to staff... and all critical care pts) @ -No Diagnosis/symptom? @ -Pleuritic chest pain Acute, or Chronic, or Acute on Chronic? @ -Default Uncomplicated (without systemic symptoms) or Complicated (systemic symptoms)? @ -Default Side effects of treatment? @ -None Exacerbation, Progression, or Severe Exacerbation] @ -No Poses a threat to life or bodily function? @ -No - Lab Data Result diagrams: 09/09/24 19:41 09/09/24 19:41 Lab Results 09/09/24 09/09/24 09/09/24 Range/Units 19:41 19:41 19:41 WBC 8.6 (3.8-10.6) k/uL RBC 4.99 (3.80-5.40) m/uL Hgb 14.0 (11.4-16.0) gm/dL Hct 42.0 (34.0-46.0) % MCV 84.3 (80.0-100.0) fL MCH 28.0 (25.0-35.0) pg MCHC 33.3 (31.0-37.0) g/dL RDW 13.6 (11.5-15.5) % Plt Count 318 (150-450) k/uL MPV 7.7 Neutrophils % 64 % Lymphocytes % 27 % Monocytes % 4 % Eosinophils % 3 % Basophils % 1 % Neutrophils # 5.5 (1.3-7.7) k/uL Lymphocytes # 2.3 (1.0-4.8) k/uL Monocytes # 0.4 (0-1.0) k/uL Eosinophils # 0.3 (0-0.7) k/uL Basophils # 0.1 (0-0.2) k/uL PT 10.8 (10.0-12.5) sec INR 1.0 (<1.2) APTT 22.3 (22.0-30.0) sec D-Dimer 0.87 H (<0.60) mg/L FEU Sodium 138 (137-145) mmol/L Potassium 3.5 (3.5-5.1) mmol/L Chloride 105 (98-107) mmol/L Carbon Dioxide 25 (22-30) mmol/L Anion Gap 8 mmol/L BUN 9 (7-17) mg/dL Creatinine 0.71 (0.52-1.04) mg/dL Est GFR (CKD-EPI)AfAm >90 (>60 ml/min/1.73 sqM) Est GFR (CKD-EPI)NonAf >90 (>60 ml/min/1.73 sqM) Glucose 105 H (74-99) mg/dL Calcium 9.2 (8.4-10.2) mg/dL Magnesium 1.9 (1.6-2.3) mg/dL Total Bilirubin 0.4 (0.2-1.3) mg/dL AST 34 (14-36) U/L ALT 33 (4-34) U/L Alkaline Phosphatase 76 (38-126) U/L Troponin I (0.000-0.034) ng/mL Total Protein 7.6 (6.3-8.2) g/dL Albumin 4.2 (3.5-5.0) g/dL HCG, Qual Not Detected 09/09/24 Range/Units 19:41 WBC (3.8-10.6) k/uL RBC (3.80-5.40) m/uL Hgb (11.4-16.0) gm/dL Hct (34.0-46.0) % MCV (80.0-100.0) fL MCH (25.0-35.0) pg MCHC (31.0-37.0) g/dL RDW (11.5-15.5) % Plt Count (150-450) k/uL MPV Neutrophils % % Lymphocytes % % Monocytes % % Eosinophils % % Basophils % % Neutrophils # (1.3-7.7) k/uL Lymphocytes # (1.0-4.8) k/uL Monocytes # (0-1.0) k/uL Eosinophils # (0-0.7) k/uL Basophils # (0-0.2) k/uL PT (10.0-12.5) sec INR (<1.2) APTT (22.0-30.0) sec D-Dimer (<0.60) mg/L FEU Sodium (137-145) mmol/L Potassium (3.5-5.1) mmol/L Chloride (98-107) mmol/L Carbon Dioxide (22-30) mmol/L Anion Gap mmol/L BUN (7-17) mg/dL Creatinine (0.52-1.04) mg/dL Est GFR (CKD-EPI)AfAm (>60 ml/min/1.73 sqM) Est GFR (CKD-EPI)NonAf (>60 ml/min/1.73 sqM) Glucose (74-99) mg/dL Calcium (8.4-10.2) mg/dL Magnesium (1.6-2.3) mg/dL Total Bilirubin (0.2-1.3) mg/dL AST (14-36) U/L ALT (4-34) U/L Alkaline Phosphatase (38-126) U/L Troponin I <0.012 (0.000-0.034) ng/mL Total Protein (6.3-8.2) g/dL Albumin (3.5-5.0) g/dL HCG, Qual - Radiology Data Chest x-ray: No acute cardiopulmonary disease/process. Noncontrast head CT: No acute intracranial process. CT angiography chest with IV contrast: No evidence of acute pulmonary embolism or acute pulmonary pathology. Disposition Clinical Impression: Headache, Pleuritic chest pain Disposition: HOME SELF-CARE Condition: Stable Instructions (If sedation given, give patient instructions): Chest Pain (ED), Pleurisy (ED), Acute Headache (ED) Additional Instructions: Return to the ER immediately should you develop new or worsening pain, numbness or weakness, a fever, increased shortness of breath, persistent vomiting, feeling dizzy or faint, or new or worsening symptoms. Follow-up closely with your primary care provider. Is patient prescribed a controlled substance at d/c from ED?: No Referrals: Bjorn Hewitt MD [Primary Care Provider] - 1-2 days Time of Disposition: 23:00
[2024-09-09] MEDS: METOCLOPRAMIDE 5 MG/ML 2 ML VIAL IVP STA (19:54)
[2024-09-09] MEDS: KETOROLAC 15 MG/ML 1 ML VIAL IVP STA (19:55)
[2024-09-09] MEDS: diphenhydrAMINE 50 MG/ML 1 ML VIAL IVP STA (19:58)
[2024-09-09] MEDS: LORazepam 2 MG/ML INJ IV STA (19:59)
[2024-09-09] MEDS: SODIUM CHLORIDE 0.9% 1,000 ML IV STA (20:01)
[2024-09-09 20:14] LABS: Basophils # (A) 0.1 k/uL (0-0.2); Basophils % (A) 1 %; Eosinophils # (A) 0.3 k/uL (0-0.7); Eosinophils % (A) 3 %; Lymphocytes # (A) 2.3 k/uL (1.0-4.8); Lymphocytes % (A) 27 %; MCHC 33.3 g/dL (31.0-37.0); MCV 84.3 fL (80.0-100.0); Mean Platelet Volume 7.7; Monocytes # (A) 0.4 k/uL (0-1.0); Monocytes % (A) 4 %; Neutrophils # (A) 5.5 k/uL (1.3-7.7); Neutrophils % (A) 64 %; Platelet Count 318 k/uL (150-450); RBC 4.99 m/uL (3.80-5.40); RDW 13.6 % (11.5-15.5); WBC 8.6 k/uL (3.8-10.6)
[2024-09-09 20:23] LABS: HCG,Qualitative Serum Not Detected
[2024-09-09 20:26] LABS: ALT 33 U/L (4-34); AST 34 U/L (14-36); African American GFR (CKD) >90 (>60 ml/min/1.73 sqM); Albumin 4.2 g/dL (3.5-5.0); Alkaline Phosphatase 76 U/L (38-126); Anion Gap 8 mmol/L; Blood Urea Nitrogen 9 mg/dL (7-17); Calcium 9.2 mg/dL (8.4-10.2); Carbon Dioxide 25 mmol/L (22-30); Chloride 105 mmol/L (98-107); Glucose 105 mg/dL (74-99); Magnesium 1.9 mg/dL (1.6-2.3); Non-African American GFR(CKD) >90 (>60 ml/min/1.73 sqM); Potassium 3.5 mmol/L (3.5-5.1); Sodium 138 mmol/L (137-145); Total Bilirubin 0.4 mg/dL (0.2-1.3); Total Protein 7.6 g/dL (6.3-8.2)
--- NOTE | 2024-09-09 20:33 | XR ---
EXAMINATION TYPE: XR chest 2V DATE OF EXAM: 09/09/2024 8:28 PM COMPARISON: None. CLINICAL INDICATION: Female, 39 years old with history of Chest Pain; [facility] TECHNIQUE: XR chest 2V Frontal and lateral views of the chest. FINDINGS: Exam somewhat limited due to low lung volumes. Lungs/Pleura: There is no evidence of pleural effusion, focal consolidation, or pneumothorax. Pulmonary vascularity: Unremarkable. Heart/mediastinum: Cardiomediastinal silhouette is unremarkable. Musculoskeletal: No acute osseous pathology. Other findings: None IMPRESSION: No acute cardiopulmonary disease/process. [facility], , 09/09/2024 8:30 PM
[2024-09-09 20:39] LABS: Partial Thromboplastin Time 22.3 sec (22.0-30.0); Prothrombin Time 10.8 sec (10.0-12.5)
--- NOTE | 2024-09-09 20:49 | CT ---
EXAMINATION TYPE: CT brain wo con DATE OF EXAM: 09/09/2024 8:36 PM COMPARISON: Previous brain MRI study dated 04/27/2015. CLINICAL INDICATION: Female, 39 years old with history of Headache, PAIN IN BACK OF HEAD THAT IS NOW SHOOTING INTO HER NECK. TECHNIQUE: Brain: Axial CT images of the brain were obtained with coronal and sagittal reformats created and rev iewed. Contrast used: None. Oral contrast used: None. CT DLP: 1110.4 mGycm, Automated exposure control for dose reduction was used. FINDINGS: Brain: Extra-axial spaces: No abnormal extra-axial fluid collections. Calcifications along the posterior fal x, present on prior study 04/27/2015. Ventricular system: Within normal limits Cerebral parenchyma: No acute intraparenchymal hemorrhage or mass effect. The castro-white junction is well differentiated. Cerebellum: Unremarkable. Mass effect: No evidence of midline shift. Intracranial vasculature: unremarkable Soft tissues: Normal. Calvarium/osseous structures: No depressed skull fracture. Paranasal sinuses and mastoid air cells: Mild scattered paranasal sinus disease. Visualized orbits: Orbital contents are intact. IMPRESSION: No acute intracranial process. [facility], , 09/09/2024 8:47 PM
[2024-09-09] MEDS: SODIUM CHLORIDE 0.9% 1,000 ML IV ONE (21:25)
--- NOTE | 2024-09-09 21:26 | CT ---
EXAMINATION TYPE: CT chest angio for PE DATE OF EXAM: 09/09/2024 9:08 PM COMPARISON: None. CLINICAL INDICATION: Female, 39 years old with history of left chest pain, dyspnea, elevated d-dimer; CHEST PAIN ELEVATED DIMER .87 TECHNIQUE/CONTRAST: CTA scan of the thorax is performed with IV Contrast, patient injected with 100ML mL of Isovue 370, M IP images are created and reviewed these are created on a separate workstation.. CT DLP: 617.8 mGycm, Automated exposure control for dose reduction was used. FINDINGS: Pulmonary Artery: Suboptimal timing of contrast bolus limits evaluation for acute pulmonary embolism. Within this limitation, there is no evidence for a filling defect within the pulmonary vasculature t o suggest acute pulmonary embolism. The pulmonary artery is of normal size. Lungs/Pleura: No evidence of focal consolidation, pleural effusion or pneumothorax. Airway: Large airways are patent. Heart: Heart is within normal limits for size. Vasculature: No evidence of aortic aneurysm. Mediastinum: No gross evidence of adenopathy. Musculoskeletal: No acute osseous abnormalities. Partially visualized cervical spine fusion hardware. Thoracic spine degenerative changes. Soft Tissues/lymph nodes: Unremarkable. Lower neck: No significant findings. Upper Abdomen: No significant findings. IMPRESSION: No evidence of acute pulmonary embolism or acute pulmonary pathology. [facility], , 09/09/2024 9:24 PM
[2024-09-10 00:07] VITALS: BP 107/69; PULSE 73; RESP 19
== END 2024-09-10 00:20 | disposition home or self-care (01) ==
LOC: EC 19:19
DX: R51.9 Headache, unspecified (principal); R07.81 Pleurodynia; Z87.891 Personal history of nicotine dependence; Z88.5 Allergy status to narcotic agent; Z88.6 Allergy status to analgesic agent; Z88.8 Allergy status to other drugs, medicaments and biological substances
CPT/HCPCS: 36415; 93005; 85379; 80053; 83735; 84484; 85025; 85610; 85730; 84703; 71046; 70450; 71275; 99285; 96374; 96375 ×3; 96361 ×2; J2060; J1200; J2765; J1885; Q9967

== ENCOUNTER 2024-09-22 13:15 | Emergency (ER) | payer MEDICARE, OTHER ==
--- NOTE | 2024-09-22 13:54 | ED ---
Weakness HPI - General Source: patient, RN notes reviewed Mode of arrival: EMS Limitations: no limitations <Angela Dewey - Last Filed: 09/22/24 15:58> <Jaelyn Chaidez - Last Filed: 09/22/24 20:04> - General Chief complaint: Weakness Stated complaint: CP Time Seen by Provider: 09/22/24 13:53 - History of Present Illness Initial comments: Quick note: 39-year-old female presented to the ER for evaluation of weakness. Patient states yesterday while driving to work her eyes were "shutting". Patient had to leave early from work as she was falling asleep in her machine. She states for the past week she has felt very ill and weak. For the past 2-1/2 weeks patient has been treated for "inflamed lungs" with multiple antibiotics. Patient states yesterday she started to have diarrhea, chills along with chest discomfort. Patient states she feels mildly lightheaded no shortness of breath. Patient was seen at urgent care and found to be hypotensive. Patient refused ER evaluation at that time and went home. (Angela Dewey) - Related Data Home Medications Medication Instructions Recorded Confirmed Butalb/APAP/Caff 50-325-40Mg 1 tab PO BID PRN 03/21/21 03/21/21 [Fioricet 50-325-40] Gabapentin 800 mg PO TID 03/21/21 03/21/21 HYDROcodone/APAP 10-325MG [[place] 1 tab PO QID PRN 03/21/21 03/21/21 10-325] Naproxen 500 mg PO DAILY PRN 03/21/21 03/21/21 hydrOXYzine HCL [Atarax] 50 mg PO QID PRN 03/21/21 03/21/21 tiZANidine [Zanaflex] 4 mg PO HS 03/21/21 03/21/21 Allergies Allergy/AdvReac Type Severity Reaction Status Date / Time simvastatin [From Zocor] Allergy Unknown Verified 09/22/24 13:32 ibuprofen [From Motrin] AdvReac Chest Pain Verified 09/22/24 13:32 morphine AdvReac Itching Verified 09/22/24 13:32 pregabalin [From Lyrica] AdvReac DEPRESSION. Verified 09/22/24 13:32 propranolol HCl AdvReac Chest Pain Verified 09/22/24 13:32 [From Inderal LA] Review of Systems ROS Other: All systems not noted in ROS Statement are negative. <Angela Dewey - Last Filed: 09/22/24 15:58> ROS Other: All systems not noted in ROS Statement are negative. <Jaelyn Chaidez - Last Filed: 09/22/24 20:04> ROS Statement: Those systems with pertinent positive or pertinent negative responses have been documented in the HPI. Past Medical History Past Medical History: Fibromyalgia, Musculoskeletal Disorder Additional Past Medical History / Comment(s): Hx migraines. Hx elevated liver enzymes in 2011. Arthritis in back. Born with "Tethered spinal cord." Pain, numbness Rt neck, Varicose veins History of Any Multi-Drug Resistant Organisms: MRSA Date of last positivie culture/infection: 2013 MDRO Source:: armpits Past Surgical History: Back Surgery Additional Past Surgical History / Comment(s): D&C. Back surgery - 2005 and 2007, neck surgery 2019 Past Anesthesia/Blood Transfusion Reactions: Family History of Problems w/ Anesthesia, Motion Sickness Additional Past Anesthesia/Blood Transfusion Reaction / Comment(s): Mother has PONV. Past Psychological History: Anxiety Smoking Status: Former smoker Past Alcohol Use History: Occasional Past Drug Use History: Marijuana - Past Family History Mother Family Medical History: Cancer, Diabetes Mellitus, Hyperlipidemia, Hypertension Additional Family Medical History / Comment(s): skin CA <Angela Dewey - Last Filed: 09/22/24 15:58> General Exam Limitations: no limitations <Angela Dewey - Last Filed: 09/22/24 15:58> Limitations: no limitations General appearance: alert, in no apparent distress <Jaelyn Chaidez - Last Filed: 09/22/24 20:04> - General Exam Comments Initial Comments: Visual Physical Exam Vital signs reviewed General: Well-appearing, nontoxic, no acute distress. Head: Normocephalic, atraumatic Eyes: PERRLA, EOMI ENT: Airway patent Chest: Nonlabored breathing Skin: No visual rash, normal skin tone Neuro: Alert and oriented 3 Musculoskeletal: No gross abnormalities (Angela Dewey) Course Vital Signs 09/22/24 09/22/24 09/22/24 13:32 15:31 15:38 Temperature 98.7 F Pulse Rate 76 Pulse Rate [ 78 Pulse Oximetery ] Respiratory 16 18 Rate Blood Pressure 112/80 O2 Sat by Pulse 97 Oximetry 09/22/24 09/22/24 09/22/24 15:45 16:00 18:42 Temperature 99 F 98.3 F Pulse Rate 70 65 Pulse Rate [ Pulse Oximetery ] Respiratory 16 16 Rate Blood Pressure 127/81 128/83 O2 Sat by Pulse 97 96 Oximetry 09/22/24 19:56 Temperature 98.1 F Pulse Rate 73 Pulse Rate [ Pulse Oximetery ] Respiratory 17 Rate Blood Pressure 130/80 O2 Sat by Pulse 96 Oximetry Medical Decision Making - Lab Data Result diagrams: 09/22/24 13:50 09/22/24 13:50 <Angela Dewey - Last Filed: 09/22/24 15:58> - Lab Data Result diagrams: 09/22/24 13:50 09/22/24 13:50 <Jaelyn Chaidez - Last Filed: 09/22/24 20:04> - Medical Decision Making I performed the quick note portion of this chart. Electronically signed by Angela Dewey PA-C (Angela Dewey) Was pt. sent in by a medical professional or institution ([facility], CONTRACT ANALYST, urgent care, hospital, or fpc...) When possible be specific @ -[No] Did you speak to anyone other than the patient for history (EMS, parent, family, police, friend...)? What history was obtained from this source @ -[No] Did you review nursing and triage notes (agree or disagree)? Why? @ -[I reviewed and agree with nursing and triage notes] Were old charts reviewed (outside hosp., previous admission, EMS record, old EKG, old radiological studies, urgent care reports/EKG's, fpc records)? Report findings @ -[No old charts were reviewed] Differential Diagnosis (chest pain, altered mental status, abdominal pain women, abdominal pain men, vaginal bleeding, weakness, fever, dyspnea, syncope, headache, dizziness, GI bleed, back pain, seizure, CVA, palpatations, mental health, musculoskeletal)? @ -[Differential Dyspnea: Coronary syndrome, arrhythmia, tamponade, asthma, COPD, pulmonary embolism, pneumonia, pneumothorax, pulmonary effusion, anaphylaxis, diabetic ketoacidosis, flailed chest, pulmonary contusion, diaphragmatic rupture, anemia, neuromuscular, this is not meant to be an all-inclusive list. ] EKG interpreted by me (3pts min.). @ -EKG 50 did not show sinus rhythm rate 72, WA 92, QRS 90, QTQTc [id number] X-rays interpreted by me (1pt min.). @ -Chest x-ray reveals no acute process CT interpreted by me (1pt min.). @ -CT chest angio for PE shows no evidence of PE or acute pulmonary process U/S interpreted by me (1pt. min.). @ -[None done] What testing was considered but not performed or refused? (CT, X-rays, U/S, labs)? Why? @ -[None] What meds were considered but not given or refused? Why? @ -[None] Did you discuss the management of the patient with other professionals (professionals i.e. , PA, CONTRACT ANALYST, lab, RT, psych nurse, medical social consultant, place change roof bolter, teacher, community reinvestment act officer, case managers)? Give summary @ -[No] Was smoking cessation discussed for >3mins.? @ -[No] Was critical care preformed (if so, how long)? @ -[No] Were there social determinants of health that impacted care today? How? (Homelessness, low income, unemployed, alcoholism, drug addiction, transportation, low edu. Level, literacy, decrease access to med. care, half-way, rehab)? @ -[No] Was there de-escalation of care discussed even if they declined (Discuss DNR or withdrawal of care, Hospice)? DNR status @ -[No] What co-morbidities impacted this encounter? (DM, HTN, Smoking, COPD, CAD, Cancer, CVA, ARF, Chemo, Hep., AIDS, mental health diagnosis, sleep apnea, mo rbid obesity)? @ -[None] Was patient admitted / discharged? Hospital course, mention meds given and route, prescriptions, significant lab abnormalities, going to OR and other pertinent info. @ -[hospital course] Undiagnosed new problem with uncertain prognosis? @ -[No] Drug Therapy requiring intensive monitoring for toxicity (Heparin, Nitro, Insulin, Cardizem)? @ -[No] Were any procedures done? @ -[No] Diagnosis/symptom? @ -[default] Acute, or Chronic, or Acute on Chronic? @ -[default] Uncomplicated (without systemic symptoms) or Complicated (systemic symptoms)? @ -[default] Side effects of treatment? @ -[No] Exacerbation, Progression, or Severe Exacerbation? @ -[No] Poses a threat to life or bodily function? How? (Chest pain, USA, MA, pneumonia, PE, COPD, DKA, ARF, appy, cholecystitis, CVA, Diverticulitis, Homicidal, Suicidal, threat to staff... and all critical care pts) @ -[No] (Jaelyn Chaidez) - Lab Data Lab Results 09/22/24 09/22/24 09/22/24 Range/Units 13:50 13:50 13:50 WBC 9.1 (3.8-10.6) k/uL RBC 5.24 (3.80-5.40) m/uL Hgb 14.6 (11.4-16.0) gm/dL Hct 44.7 (34.0-46.0) % MCV 85.2 (80.0-100.0) fL MCH 27.8 (25.0-35.0) pg MCHC 32.6 (31.0-37.0) g/dL RDW 13.6 (11.5-15.5) % Plt Count 308 (150-450) k/uL MPV 7.6 Neutrophils % 76 % Lymphocytes % 18 % Monocytes % 3 % Eosinophils % 2 % Basophils % 0 % Neutrophils # 6.9 (1.3-7.7) k/uL Lymphocytes # 1.6 (1.0-4.8) k/uL Monocytes # 0.3 (0-1.0) k/uL Eosinophils # 0.2 (0-0.7) k/uL Basophils # 0.0 (0-0.2) k/uL PT 11.6 (10.0-12.5) sec INR 1.1 (<1.2) APTT 19.5 L (22.0-30.0) sec D-Dimer (<0.60) mg/L FEU Sodium 142 (137-145) mmol/L Potassium 4.2 (3.5-5.1) mmol/L Chloride 109 H (98-107) mmol/L Carbon Dioxide 22 (22-30) mmol/L Anion Gap 11 mmol/L BUN 8 (7-17) mg/dL Creatinine 0.69 (0.52-1.04) mg/dL Est GFR (CKD-EPI)AfAm >90 (>60 ml/min/1.73 sqM) Est GFR (CKD-EPI)NonAf >90 (>60 ml/min/1.73 sqM) Glucose 108 H (74-99) mg/dL Plasma Lactic Acid Javid (0.7-2.0) mmol/L Calcium 9.6 (8.4-10.2) mg/dL Total Bilirubin 0.6 (0.2-1.3) mg/dL AST 28 (14-36) U/L ALT 31 (4-34) U/L Alkaline Phosphatase 88 (38-126) U/L Troponin I (0.000-0.034) ng/mL Total Protein 7.7 (6.3-8.2) g/dL Albumin 4.3 (3.5-5.0) g/dL Influenza Type A (PCR) (Not Detectd) Influenza Type B (PCR) (Not Detectd) RSV (PCR) (Not Detectd) SARS-CoV-2 (PCR) (Not Detectd) 09/22/24 09/22/24 09/22/24 Range/Units 13:50 13:50 14:31 WBC (3.8-10.6) k/uL RBC (3.80-5.40) m/uL Hgb (11.4-16.0) gm/dL Hct (34.0-46.0) % MCV (80.0-100.0) fL MCH (25.0-35.0) pg MCHC (31.0-37.0) g/dL RDW (11.5-15.5) % Plt Count (150-450) k/uL MPV Neutrophils % % Lymphocytes % % Monocytes % % Eosinophils % % Basophils % % Neutrophils # (1.3-7.7) k/uL Lymphocytes # (1.0-4.8) k/uL Monocytes # (0-1.0) k/uL Eosinophils # (0-0.7) k/uL Basophils # (0-0.2) k/uL PT (10.0-12.5) sec INR (<1.2) APTT (22.0-30.0) sec D-Dimer (<0.60) mg/L FEU Sodium (137-145) mmol/L Potassium (3.5-5.1) mmol/L Chloride (98-107) mmol/L Carbon Dioxide (22-30) mmol/L Anion Gap mmol/L BUN (7-17) mg/dL Creatinine (0.52-1.04) mg/dL Est GFR (CKD-EPI)AfAm (>60 ml/min/1.73 sqM) Est GFR (CKD-EPI)NonAf (>60 ml/min/1.73 sqM) Glucose (74-99) mg/dL Plasma Lactic Acid Javid 1.7 (0.7-2.0) mmol/L Calcium (8.4-10.2) mg/dL Total Bilirubin (0.2-1.3) mg/dL AST (14-36) U/L ALT (4-34) U/L Alkaline Phosphatase (38-126) U/L Troponin I <0.012 (0.000-0.034) ng/mL Total Protein (6.3-8.2) g/dL Albumin (3.5-5.0) g/dL Influenza Type A (PCR) Not Detected (Not Detectd) Influenza Type B (PCR) Not Detected (Not Detectd) RSV (PCR) Not Detected (Not Detectd) SARS-CoV-2 (PCR) Not Detected (Not Detectd) 09/22/24 Range/Units 17:04 WBC (3.8-10.6) k/uL RBC (3.80-5.40) m/uL Hgb (11.4-16.0) gm/dL Hct (34.0-46.0) % MCV (80.0-100.0) fL MCH (25.0-35.0) pg MCHC (31.0-37.0) g/dL RDW (11.5-15.5) % Plt Count (150-450) k/uL MPV Neutrophils % % Lymphocytes % % Monocytes % % Eosinophils % % Basophils % % Neutrophils # (1.3-7.7) k/uL Lymphocytes # (1.0-4.8) k/uL Monocytes # (0-1.0) k/uL Eosinophils # (0-0.7) k/uL Basophils # (0-0.2) k/uL PT (10.0-12.5) sec INR (<1.2) APTT (22.0-30.0) sec D-Dimer 1.16 H (<0.60) mg/L FEU Sodium (137-145) mmol/L Potassium (3.5-5.1) mmol/L Chloride (98-107) mmol/L Carbon Dioxide (22-30) mmol/L Anion Gap mmol/L BUN (7-17) mg/dL Creatinine (0.52-1.04) mg/dL Est GFR (CKD-EPI)AfAm (>60 ml/min/1.73 sqM) Est GFR (CKD-EPI)NonAf (>60 ml/min/1.73 sqM) Glucose (74-99) mg/dL Plasma Lactic Acid Javid (0.7-2.0) mmol/L Calcium (8.4-10.2) mg/dL Total Bilirubin (0.2-1.3) mg/dL AST (14-36) U/L ALT (4-34) U/L Alkaline Phosphatase (38-126) U/L Troponin I (0.000-0.034) ng/mL Total Protein (6.3-8.2) g/dL Albumin (3.5-5.0) g/dL Influenza Type A (PCR) (Not Detectd) Influenza Type B (PCR) (Not Detectd) RSV (PCR) (Not Detectd) SARS-CoV-2 (PCR) (Not Detectd) Disposition <Angela Dewey - Last Filed: 09/22/24 15:58> Is patient prescribed a controlled substance at d/c from ED?: No <Jaelyn Chaidez - Last Filed: 09/22/24 20:04> Clinical Impression: Myalgia, Viral syndrome Disposition: HOME SELF-CARE Condition: Stable Instructions (If sedation given, give patient instructions): Musculoskeletal Pain (ED) Additional Instructions: Please follow up with your primary care provider. Return to the emergency department for new or worsening symptoms. Referrals: Bjorn Hewitt MD [Primary Care Provider] - 1-2 days
[2024-09-22 14:03] LABS: Basophils % (A) 0 %; Eosinophils # (A) 0.2 k/uL (0-0.7); Eosinophils % (A) 2 %; HCT 44.7 % (34.0-46.0); HGB 14.6 gm/dL (11.4-16.0); Lymphocytes # (A) 1.6 k/uL (1.0-4.8); Lymphocytes % (A) 18 %; MCH 27.8 pg (25.0-35.0); MCHC 32.6 g/dL (31.0-37.0); MCV 85.2 fL (80.0-100.0); Mean Platelet Volume 7.6; Monocytes # (A) 0.3 k/uL (0-1.0); Monocytes % (A) 3 %; Neutrophils # (A) 6.9 k/uL (1.3-7.7); Neutrophils % (A) 76 %; Platelet Count 308 k/uL (150-450); RBC 5.24 m/uL (3.80-5.40); RDW 13.6 % (11.5-15.5); WBC 9.1 k/uL (3.8-10.6)
[2024-09-22 14:21] LABS: ALT 31 U/L (4-34); African American GFR (CKD) >90 (>60 ml/min/1.73 sqM); Albumin 4.3 g/dL (3.5-5.0); Anion Gap 11 mmol/L; Blood Urea Nitrogen 8 mg/dL (7-17); Calcium 9.6 mg/dL (8.4-10.2); Carbon Dioxide 22 mmol/L (22-30); Chloride 109 mmol/L (98-107); Glucose 108 mg/dL (74-99); Non-African American GFR(CKD) >90 (>60 ml/min/1.73 sqM); Sodium 142 mmol/L (137-145); Total Bilirubin 0.6 mg/dL (0.2-1.3); Total Protein 7.7 g/dL (6.3-8.2)
[2024-09-22 14:23] LABS: AST 28 U/L (14-36); Alkaline Phosphatase 88 U/L (38-126); Potassium 4.2 mmol/L (3.5-5.1)
[2024-09-22 14:30] LABS: INR 1.1 (<1.2); Prothrombin Time 11.6 sec (10.0-12.5)
--- NOTE | 2024-09-22 14:30 | XR ---
EXAMINATION TYPE: XR chest 2V DATE OF EXAM: 09/22/2024 2:15 PM COMPARISON: Chest x-ray September 09, 2024 CLINICAL INDICATION: Female, 39 years old with history of Weakness, TECHNIQUE: Frontal and lateral views of the chest are obtained. FINDINGS: There is no focal air space opacity, pleural effusion, or pneumothorax seen. The cardiac silhouette size is within normal limits. Surgical changes in the cervical spine is partially imaged. Overlying bra strap is seen. IMPRESSION: No acute cardiopulmonary process. [facility], , 09/22/2024 2:27 PM
[2024-09-22 14:38] LABS: Partial Thromboplastin Time 19.5 sec (22.0-30.0)
[2024-09-22] MEDS: KETOROLAC 15 MG/ML 1 ML VIAL IVP STA (15:17)
[2024-09-22] MEDS: methylPREDNISolone SOD SUCCI 125 MG/2 ML VIAL IV STA (15:56)
[2024-09-22] MEDS: HYDROmorphone 0.5 MG/0.5 ML SYRINGE IVP STA ×2 (15:56→19:54)
[2024-09-22] MEDS: SODIUM CHLORIDE 0.9% 2,000 ML IV ONE (15:56)
[2024-09-22] MEDS: OXYMETAZOLINE 0.05% NASL SPRAY 1 SPRAY BOTTLE NASAL STA (16:45)
--- NOTE | 2024-09-22 18:50 | CT ---
EXAMINATION TYPE: CT chest angio for PE DATE OF EXAM: 09/22/2024 5:59 PM COMPARISON: 09/09/2024 CLINICAL INDICATION: Female, 39 years old with history of pain, elevated dimer, chest pain, elevated d-dimer TECHNIQUE: CT of the chest is performed on a spiral scan at 2 mm thick sections. Study is performed with intravenous contrast timed for evaluation for pulmonary embolism. This will limit additional po rtions of the evaluation. 3-D MIP images reconstructed by the technologist are reviewed on the compu ter in the coronal and sagittal planes. Contrast used:100 mL of Isovue 370 with IV Contrast, (none if empty) Oral contrast used: (none if empty) CT DLP: 713.5 mGycm, Automated exposure control for dose reduction was used. FINDINGS: No persistent filling defects are evident to suggest an acute pulmonary embolism. No mediastinal or hilar adenopathy enlarged by CT criteria is evident. The ascending aorta diameter at the level of the main pulmonary artery is 2.8 cm. The main pulmonary artery diameter at the bifurcation is 2.8 cm. Lung windows are clear. Limited CT sections were through the upper abdomen. Upper abdomen appears unremarkable. IMPRESSION: 1. No acute pulmonary process. 2. No acute pulmonary embolism [facility], Workstation: [facility], 09/22/2024 6:48 PM
[2024-09-22 19:58] VITALS: BP 130/80; PULSE 73; RESP 17; TEMP 98.1
== END 2024-09-22 20:00 | disposition home or self-care (01) ==
LOC: EC 13:15
DX: M79.10 Myalgia, unspecified site (principal); B34.9 Viral infection, unspecified; Z87.891 Personal history of nicotine dependence; Z88.5 Allergy status to narcotic agent; Z88.6 Allergy status to analgesic agent; Z88.8 Allergy status to other drugs, medicaments and biological substances
CPT/HCPCS: 36415; 93005; 85379; 80053; 83605; 84484; 85025; 85610; 85730; 87636; 71046; 71275; 99285; 96374; 96375; 96376; 96361; J1885; J1171; Q9967; J2919